=== PATIENT | male | born 1965 | race Caucasian/White ===

== ENCOUNTER 2019-03-22 21:03 | Emergency (ER) | payer OTHER, SELFPAY ==
[2019-03-22 21:18] VITALS: BP 204/104; PULSE 71; RESP 16; TEMP 36.3; O2SAT 98; BMI 26.9
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
[2019-03-22] MEDS: ketorolac 30 mg/mL INJ IVP (22:15)
[2019-03-22] MEDS: diphenhydrAMINE 50 mg/mL SDV 1mL IVP (22:15)
[2019-03-22 23:01] VITALS: BP 164/95; PULSE 66; RESP 18; O2SAT 98
[2019-03-22] MEDS: magnesium sulfate premix 2 GM/50 ML PIGGYBACK IV (23:01)
[2019-03-22] MEDS: dexamethasone 4 mg/mL INJ IVP (23:01)
[2019-03-22] MEDS: valproic acid inj 500 MG in sodium chloride 0.9% 50 ML 55 MG IV (23:17)
[2019-03-23 00:46] VITALS: RESP 16
[2019-03-23] MEDS: fentaNYL 50 mcg/mL INJ 2mL IVP (00:46)
[2019-03-23 00:47] VITALS: BP 161/100; PULSE 73; RESP 16; TEMP 36.6; O2SAT 97
== END 2019-03-23 00:48 | disposition home or self-care (01) ==
PROVIDERS: Emergency Provider Family Medicine; Family Provider Emergency Medicine Emergency Medical Services; PCP Emergency Medicine Emergency Medical Services
DX: G43.019 Migraine without aura, intractable, without status migrainosus (principal); F17.210 Nicotine dependence, cigarettes, uncomplicated
CPT/HCPCS: 36415; 96365; 96368; 96374; 96375; 99283; J1100; J1200; J1885; J3010; J3475

== ENCOUNTER → 2019-07-02 09:41 | Outpatient (BNVA) | payer OTHER, SELFPAY | PROVIDERS: Family Provider Emergency Medicine Emergency Medical Services; PCP Emergency Medicine Emergency Medical Services; Referring Provider Emergency Medicine Emergency Medical Services; Visit Provider Specialist | DX: G43.711 Chronic migraine without aura, intractable, with status migrainosus (principal); F43.10 Post-traumatic stress disorder, unspecified; F17.210 Nicotine dependence, cigarettes, uncomplicated | CPT/HCPCS: 99214 ==

== ENCOUNTER → 2020-03-01 13:47 | Outpatient (BNVA) | payer OTHER, SELFPAY | PROVIDERS: Family Provider Emergency Medicine Emergency Medical Services; PCP Emergency Medicine Emergency Medical Services; Visit Provider Specialist | DX: G40.909 Epilepsy, unspecified, not intractable, without status epilepticus (principal); F17.210 Nicotine dependence, cigarettes, uncomplicated | CPT/HCPCS: 99204 ==

== ENCOUNTER 2020-05-01 04:23 | Emergency (ER) | payer OTHER, SELFPAY ==
[2020-05-01] VITALS (7 sets, daily range): BP systolic 118–144; BP diastolic 67–84; PULSE 64–118; RESP 12–16; TEMP 36.1; O2SAT 93–100; BMI 23.7
--- NOTE | 2020-05-01 05:29 | CTR_ITS ---
PROCEDURE INFORMATION: Exam: CT Head Without Contrast Exam date and time: 05/01/2020 5:32 AM Age: 54 years old Clinical indication: Other: Seizure; Additional info: Sz TECHNIQUE: Imaging protocol: Computed tomography of the head without contrast. Radiation optimization: All CT scans at this facility use at least one of these dose optimization techniques: automated exposure control; mA and/or kV adjustment per patient size (includes targeted exams where dose is matched to clinical indication); or iterative reconstruction. COMPARISON: CT head wo con* [id number] 01/11/2020 11:12 PM RADIATION DOSE METRICS: Total DLP (mGy-cm): 957.77 FINDINGS: Brain: No hemorrhage. Unremarkable white matter. No mass effect. Cerebral ventricles: Still no ventriculomegaly. Bones/joints: Unremarkable. No acute fracture. Paranasal sinuses: Continued minimal mucosal thickening in a few paranasal sinuses. Still no air-fluid levels. Mastoid air cells: Visualized mastoids still unremarkable. Soft tissues: Unremarkable. CT/CT head wo con* [id number] IMPRESSION: No acute findings. Radiation Dose CTDIVOL = (mGy): DLP = 957.77 (mGy-cm)
--- NOTE | 2020-05-01 05:29 | XRR_ITS ---
PROCEDURE INFORMATION: Exam: XR Chest Exam date and time: 05/01/2020 5:32 AM Age: 54 years old Clinical indication: Other: Seizure; Additional info: Karine TECHNIQUE: Imaging protocol: XR of the chest Views: 1 view. COMPARISON: DX Chest 1 view [id number] 01/11/2020 11:25 PM FINDINGS: Lungs: Continued slight atelectasis in the lung bases. Interval slight increase in the lung volumes. Still no consolidation. Pleural spaces: Still no pneumothorax or apparent pleural fluid. Heart/Mediastinum: Borderline cardiomegaly still likely. Bones/joints: Still no apparent acute bony disease. XR/XR chest 1V portable [id number] IMPRESSION: Continued slight atelectasis in the lung bases. Borderline cardiomegaly still likely. No interval acute findings.
--- NOTE | 2020-05-01 05:30 | ECG_ITS ---
Test Date: 2020-05-01 Pat Name: Hair Jonh Department: Room: Gender: Male Etcher Hand: : 1965 Requested By: Erwin Solitario Order Number: [id number] Mendoza MD: Cuauhtemoc Garcia M.D. Measurements Intervals [place] Rate: 101 P: 64 MS: 160 QRS: 16 QRSD: 118 T: 52 QT: 343 QTc: 446 Interpretive Statements SINUS TACHYCARDIA INCOMPLETE RIGHT BUNDLE BRANCH BLOCK [90+ ms QRS DURATION, TERMINAL R IN V1/V2, 40+ ms S IN I/aVL/V4/V5/V6] POSSIBLE LATERAL MYOCARDIAL INFARCTION , OF INDETERMINATE AGE [30 ms Q WAVE IN I/aVL/V5/V6] No previous ECG available for comparison Electronically Signed On 05-01-2020 22:40:00 CDT by Cuauhtemoc Garcia M.D. [id number]
--- NOTE | 2020-05-01 05:45 | ED_ITS ---
HPI - Seizure General: Chief Complaint: Seizure Stated Complaint: SEIZURE Time Seen by Provider: 05/01/20 05:36 Source: patient and EMS Mode of arrival: EMS Limitations: no limitations History of Present Illness: HPI Narrative: 54-year-old male with a history of seizures states he had a seizure overnight lasted roughly 10 minutes. Patient had another seizure in route here by EMS and was given Valium. He feels much improved has had no more seizures since the Valium. He denies hitting his head denies any headache. He takes Keppra at home states he has been taking it. He denies any worsening improving factors. Denies any recent illness. MD complaint: seizure Associated symptoms: Deny chest pain, chills or fever(s) Review of Systems Const: Denies: fever(s), chills, body aches or change in appetite Eyes: Denies: blurry vision or eye discomfort ENMT: Denies: throat pain or dental pain Card: Denies: chest pain Resp: Denies: dyspnea GI: Denies: abdominal pain, nausea, vomiting or diarrhea : Denies: dysuria Musc: Denies: neck pain or back pain Skin/Breast: Denies: rash Neuro: Reports: seizure-like activity Psych: Denies: depression Abdirashid/Lymph: Denies: easy bruising All/Imm: Denies: urticaria PFSH ED PFSH: Family History Father Cancer Diabetes Mother Diabetes Denies family history of Dementia Social History Smoking and tobacco status: current every day smoker Physical Exam Const: COMMON NORMALS: no acute distress, patient oriented x3 and healthy appearing HENMT: COMMON NORMALS: normocephalic and atraumatic HEAD & SCALP: normocephalic and atraumatic Eye: COMMON NORMALS: Equal, round and reactive pupils present and EOMs intact bilaterally PUPIL: Yes Equal, round and reactive pupils present Neck/C-Spine: COMMON NORMALS: full ROM and supple Chest: COMMONS NORMALS: normal inspection of the chest and normal palpation of entire chest wall Resp: COMMON NORMALS: normal respiratory effort, No retractions, No use of accessory muscles and clear to auscultation bilaterally AUSCULTATION: clear to auscultation bilaterally Cardio: COMMON NORMALS: regular rate, regular rhythm and No murmurs present (Cardio) RATE: regular rate RHYTHM: regular rhythm GI: COMMON NORMALS: Normal to inspection, nondistended, normoactive bowel sounds present, Soft to palpation, non-tender and no masses PALPATION: Yes Soft to palpation Extremity: COMMON NORMALS: normal to inspection and full ROM Neuro: COMMON NORMALS: patient oriented x3, moves all extremities and no focal motor deficits Psych: COMMON NORMALS: mental status grossly normal, Normal thought process present and cooperative THOUGHT PROCESS: Normal thought process present Skin: COMMON NORMALS: no rashes or lesions noted and no wounds GENERAL SKIN EXAM: no rashes or lesions noted Course Vital Signs: Vital signs: Vital Signs Temperature 97.0 F L 05/01/20 04:48 Pulse Rate 82 05/01/20 07:25 Respiratory Rate 16 05/01/20 07:25 Blood Pressure 128/84 05/01/20 07:25 Pulse Oximetry 99 05/01/20 07:25 MDM - Seizure MDM Narrative: Medical decision making narrative: Patient presents with a seizure and does have a history of seizures. He is much improved here has not had any seizures [place] here. Blood work and CT head were both normal. He is to continue to keep his Keppra and I did give him a dose of Keppra here. Lab Data: Labs: Lab Results 05/01/20 05/01/20 Range/Units 05:52 05:52 WBC 15.4 H (4.0-10.0) 10^3/ uL RBC 5.17 (4.1-5.3) 10^6/u L Hgb 16.1 (11.7-16.6) g/dL Hct 47.4 (42.0-52.0) % MCV 91.7 (80-94) fL MCH 31.1 (28.0-34.0) pg MCHC 34.0 (30.0-36.0) g/dL RDW 12.6 (12.1-15.1) % Plt Count 271 (130-400) 10^3/c mm MPV 10.3 (7.4-10.4) fL Neut % (Auto) 87.5 % Lymph % (Auto) 6.4 % Mcintosh % (Auto) 4.3 % Eos % (Auto) 0.5 % Baso % (Auto) 0.3 % Neut # (Auto) 13.44 H (1.8-7.7) 10^3/u L Lymph # (Auto) 1.0 (0.8-4.8) 10^3/u L Mcintosh # (Auto) 0.7 (0.2-0.9) 10^3/u L Eos # (Auto) 0.1 (0.0-0.8) 10^3/u L Baso # (Auto) 0.0 (0.0-0.1) 10^3/u L Nucleated RBC % (a uto) 0 % Nucleated RBCs # 0.0 /100WBC Sodium 137 (136-145) mmol/L Potassium 3.7 (3.5-5.1) mmol/L Chloride 102 (98-107) mmol/L Carbon Dioxide 23 (22-29) mmol/L Anion Gap 15.7 (5-19) BUN 8 (6-20) mg/dL Creatinine 1.0 (0.7-1.2) mg/dL GFR Calculation 77.3 L (90-130) mL/min Glucose 126 H (65-115) mg/dL Calculated Osmolal ity 284 L (285-295) mOsm/k g Calcium 9.4 (8.5-10.5) mg/dL Total Bilirubin 0.2 (0.15-1.2) mg/dL AST 22 (0-40) U/L ALT 19 (0-41) U/L Alkaline Phosphata se 77 (40-130) IU/L Total Protein 7.2 (6.6-8.7) g/dL Albumin 4.3 (3.5-5.2) g/dL Globulin 2.9 (1.3-4.6) g/dL Imaging Data^: CT Head: Attestation: I personally reviewed and interpreted this imaging study as follows: Radiologist's impression: [address] [address] [address] Scan Report Signed Patient: Hair John Unit #: [id number] : 1965 Age/Sex: 54 / M ADM Date: 05/01/20 Loc: ER Room/Bed: Attending Dr: Ordering Provider/Ordering MD: Erwin Bustos DO Date of Service: 05/01/20 Procedure(s): CT head wo con* [id number] Accession Number(s): [id number] Report Number: [id number] PROCEDURE INFORMATION: Exam: CT Head Without Contrast Exam date and time: 05/01/2020 5:32 AM Age: 54 years old Clinical indication: Other: Seizure; Additional info: Sz TECHNIQUE: Imaging protocol: Computed tomography of the head without contrast. Radiation optimization: All CT scans at this facility use at least one of these dose optimization techniques: automated exposure control; mA and/or kV adjustment per patient size (includes targeted exams where dose is matched to clinical indication); or iterative reconstruction. COMPARISON: CT head wo con* [id number] 01/11/2020 11:12 PM RADIATION DOSE METRICS: Total DLP (mGy-cm): 957.77 FINDINGS: Brain: No hemorrhage. Unremarkable white matter. No mass effect. Cerebral ventricles: Still no ventriculomegaly. Bones/joints: Unremarkable. No acute fracture. Paranasal sinuses: Continued minimal mucosal thickening in a few paranasal sinuses. Still no air-fluid levels. Mastoid air cells: Visualized mastoids still unremarkable. Soft tissues: Unremarkable. CT/CT head wo con* [id number] IMPRESSION: No acute findings. EKG Data^: EKG 1: Attestation: I personally reviewed and interpreted this EKG as follows: EKG interpretation date: 05/01/20 EKG interpretation time: 05:53 Interpretation: sinus tach hr [address] or t wave abnormalities qrs 118 qtc 401 Discharge Plan Discharge Patient Disposition: Home Clinical Impression: Generalized seizure Condition: Stable Prescriptions: No Action levetiracetam 750 mg tablet extended release 24 hr 1,500 mg PO DAILY Qty: 180 RF: 3 venlafaxine 25 mg tablet 25 mg PO DAILY RF: 0 lisinopril 10 mg tablet 10 mg PO DAILY RF: 0 venlafaxine 150 mg Tablet Extended Release 24hr 150 mg PO DAILY RF: 0 Discharge Orders: Discharge ED (Routine); Ordered 05/01/20 Ordered By: Mackenzie Wilson Referrals: Emeka Evans DO [Primary Care Provider] - Discharge Diet: Advance as tolerated Discharge Activity: Resume usual activity Patient Instructions: Recurrent Seizures Adult (ED) Coding Level of Care Code ED Dairy Laboratory Technician for Chg Fwd Exam Comprehensive
[2020-05-01 06:14] LABS: Basophils % 0.3 %; Eosinophils # 0.1 10^3/uL (0.0-0.8); Eosinophils % 0.5 %; Hematocrit 47.4 % (42.0-52.0); Hemoglobin 16.1 g/dL (11.7-16.6); Lymphocytes % 6.4 %; Mean Corpuscular Hemoglobin 31.1 pg (28.0-34.0); Mean Corpuscular Volume 91.7 fL (80-94); Mean Platelet Volume 10.3 fL (7.4-10.4); Monocytes # 0.7 10^3/uL (0.2-0.9); Monocytes % 4.3 %; Neutrophils # 13.44 10^3/uL (1.8-7.7); Neutrophils % 87.5 %; Nucleated Red Blood Cells % 0 %; Platelet Count 271 10^3/cmm (130-400); Red Blood Count 5.17 10^6/uL (4.1-5.3); Red Cell Distribution Width 12.6 % (12.1-15.1); White Blood Count 15.4 10^3/uL (4.0-10.0)
[2020-05-01 07:04] LABS: Alanine Aminotransferase 19 U/L (0-41); Albumin Level 4.3 g/dL (3.5-5.2); Alkaline Phosphatase 77 IU/L (40-130); Anion Gap 15.7 (5-19); Aspartate Amino Transferase 22 U/L (0-40); Blood Urea Nitrogen 8 mg/dL (6-20); Calcium 9.4 mg/dL (8.5-10.5); Carbon Dioxide 23 mmol/L (22-29); Chloride 102 mmol/L (98-107); Globulin 2.9 g/dL (1.3-4.6); Glomerular Filtration Rate 77.3 mL/min (90-130); Glucose 126 mg/dL (65-115); Osmolality Calculated 284 mOsm/kg (285-295); Potassium 3.7 mmol/L (3.5-5.1); Sodium 137 mmol/L (136-145); Total Bilirubin 0.2 mg/dL (0.15-1.2); Total Protein 7.2 g/dL (6.6-8.7)
== END 2020-05-01 07:30 | disposition home or self-care (01) ==
PROVIDERS: Emergency Medicine; Emergency Provider Emergency Medicine; PCP Emergency Medicine Emergency Medical Services
DX: G40.409 Other generalized epilepsy and epileptic syndromes, not intractable, without status epilepticus (principal); I45.19 Other right bundle-branch block; F17.210 Nicotine dependence, cigarettes, uncomplicated
CPT/HCPCS: 70450; 71045; 80053; 85025; 93005; 96365; 99284; J1953

== ENCOUNTER → 2020-06-09 13:22 | Outpatient (BNVA) | payer OTHER, SELFPAY | PROVIDERS: PCP Emergency Medicine Emergency Medical Services; Visit Provider Specialist | DX: G40.309 Generalized idiopathic epilepsy and epileptic syndromes, not intractable, without status epilepticus (principal); G40.909 Epilepsy, unspecified, not intractable, without status epilepticus; F17.210 Nicotine dependence, cigarettes, uncomplicated | CPT/HCPCS: 99215 ==

== ENCOUNTER → 2020-08-16 09:54 | Outpatient (BNVA) | payer OTHER, SELFPAY | PROVIDERS: PCP Emergency Medicine Emergency Medical Services; Visit Provider Specialist | DX: G40.309 Generalized idiopathic epilepsy and epileptic syndromes, not intractable, without status epilepticus (principal); F17.210 Nicotine dependence, cigarettes, uncomplicated | CPT/HCPCS: 95816 ==

== ENCOUNTER → 2020-09-07 09:54 | Outpatient (BNVA) | payer OTHER, SELFPAY | PROVIDERS: PCP Emergency Medicine Emergency Medical Services; Visit Provider Specialist | DX: G40.309 Generalized idiopathic epilepsy and epileptic syndromes, not intractable, without status epilepticus (principal); F17.200 Nicotine dependence, unspecified, uncomplicated | CPT/HCPCS: 99214 ==

== ENCOUNTER → 2020-12-07 10:03 | Outpatient (BNVA) | payer OTHER, SELFPAY | PROVIDERS: PCP Emergency Medicine Emergency Medical Services; Visit Provider Specialist | DX: G40.309 Generalized idiopathic epilepsy and epileptic syndromes, not intractable, without status epilepticus (principal); F17.210 Nicotine dependence, cigarettes, uncomplicated | CPT/HCPCS: 99214 ==

== ENCOUNTER 2021-01-20 08:58 | Emergency (ER) | payer OTHER, SELFPAY ==
[2021-01-20 09:30] VITALS: BP 127/83; PULSE 95; RESP 16; TEMP 36.6; O2SAT 96
--- NOTE | 2021-01-20 09:36 | W.ED.GENADLT ---
Documented by User: Patria Ortega PA-C 01/20/21 14:31 HPI - General Adult General: Chief complaint: General Medical Stated complaint: RLE SWELLING: [facility] Time Seen by Provider: 01/20/21 08:59 Source: patient Mode of arrival: ambulatory Limitations: no limitations History of Present Illness: HPI narrative: 55-year-old male presents to the ER today for right lower extremity swelling and tenderness. Patient reports this began suddenly 3 days ago. He denies any known injury. He reports tenderness in the right calf with swelling to the ankle and foot. He denies any history of blood clots or clotting disorders. Patient reports he did travel recently for [place], riding approximately 4 hours in the car. He denies any major medical problems at this time other than recent onset seizure disorder. Patient denies any chest pain or shortness of breath. Denies any headache or fevers. Onset (ago): day(s) Location: lower extremity Severity: mild Severity scale (1-10): 4 Quality: aching Pain Consistency: intermittent Associated symptoms: Deny chest pain, dyspnea, headache(s), nausea, rash, palpitations or vomiting Review of Systems General: Reports: 10 or more systems reviewed and unremarkable except in HPI and below Const: Denies: fever(s), chills or body aches Eyes: Denies: change in vision or blurry vision ENMT: Denies: throat pain, nasal discharge or nasal congestion Card: Reports: edema and swelling of feet/ankles (RLE); Denies: chest pain, palpitations or orthopnea Resp: Denies: dyspnea, productive cough or wheezing GI: Denies: abdominal pain, nausea, vomiting, diarrhea or constipation Musc: Reports: extremity pain and extremity swelling; Denies: neck pain or back pain Skin/Breast: Denies: rash or pruritus Neuro: Denies: headache(s) PFSH ED PFSH: Family History Father Cancer Diabetes Mother Diabetes Denies family history of Dementia Social History Smoking and tobacco status: current every day smoker cigarettes Alcohol intake: current Alcohol intake frequency: holidays/special occasions only Physical Exam Const: COMMON NORMALS: no acute distress, average body habitus and patient oriented x3 GENERAL APPEARANCE: cooperative and comfortable HENMT: COMMON NORMALS: normocephalic, external ears normal and Normal external nose present HEAD & SCALP: normocephalic NOSE: Normal external nose present EXTERNAL EAR: Yes external ears normal Eye: COMMON NORMALS: conjunctivae normal CONJUNCTIVA: Yes conjunctivae normal Neck/C-Spine: COMMON NORMALS: no lymphadenopathy Resp: COMMON NORMALS: normal respiratory effort, No retractions and clear to auscultation bilaterally AUSCULTATION: clear to auscultation bilaterally, no rales, no rhonchi and no wheezes Cardio: COMMON NORMALS: regular rate, regular rhythm and No murmurs present (Cardio) RATE: regular rate RHYTHM: regular rhythm PERIPHERAL PULSES: posterior tibial pulses present and dorsalis pedis present GI: COMMON NORMALS: Normal to inspection, nondistended, normoactive bowel sounds present, Soft to palpation and non-tender PALPATION: Yes Soft to palpation Extremity: RIGHT LOWER EXTREMITY: Yes lower leg Right lower leg: Yes inspection (swelling noted, no erythema), Yes palpation (mild tenderness noted to R superior calf, neg Homans sign) and Yes special tests Right lower leg special tests: Gurwinder's sign: Negative (RLE) Neuro: COMMON NORMALS: patient oriented x3, moves all extremities and no sensory deficits noted Psych: COMMON NORMALS: mental status grossly normal, Normal thought process present, cooperative, normal affect and speech normal SPEECH: Yes normal speech THOUGHT PROCESS: Normal thought process present Skin: COMMON NORMALS: no rashes or lesions noted GENERAL SKIN EXAM: no rashes or lesions noted Course ED course: Patient presents to the ER today for right lower extremity swelling x3 days. He has no history of blood clots but we will rule that out at this time with a Doppler venous ultrasound. We will also get labs at this time. Vital Signs: Vital signs: Vital Signs Temperature 96.4 F L 01/20/21 10:12 Pulse Rate 86 01/20/21 10:12 Respiratory Rate 20 H 01/20/21 10:12 Blood Pressure 134/80 01/20/21 10:12 Pulse Oximetry 97 01/20/21 10:12 MDM - General Adult MDM Narrative: Medical decision making narrative: 55-year-old male presents to the ER today for right lower extremity swelling x3 days. Patient has no history of DVTs or clotting disorders. Denies any injury. Ultrasound of the right lower extremity does not reveal a DVT but does note a Ceballos's cyst in the posterior knee. This is a probable cause for the swelling in the extremity. Patient has been sedentary over the last week or so while traveling. Recommended conservative treatment at this time including rest and elevation. Follow-up with PCP in 3 to 5 days. Patient was noted to have elevated liver enzymes but reports he knows about that and that is his baseline. Return to the ER with any new or worsening symptoms. Patient verbalized understanding and was in agreement with this treatment plan. Lab Data: Attestation: I reviewed the patient's lab results. Lab results narrative: Patient has elevated liver enzymes in addition to slightly decreased sodium level and slightly increased potassium level. Labs: Lab Results 01/20/21 01/20/21 01/20/21 10:00 10:00 11:22 WBC Cancelled 9.8 10^3/uL 10^3/ uL (4.0-10.0) Corrected WBC Cancelled RBC Cancelled 4.74 10^6/uL 10^6 /uL (4.1-5.3) Hgb Cancelled 15.2 g/dL g/dL (11.7-16.6) Hct Cancelled 46.1 % % (42.0-52.0) MCV Cancelled 97.3 fl H fl (80-94) MCH Cancelled 32.1 pg pg (28.0-34.0) MCHC Cancelled 33.0 g/dL g/dL (30.0-36.0) RDW Cancelled 14.1 % % (12.1-15.1) Plt Count Cancelled 294 10^3/cmm 10^3 /cmm (130-400) MPV Cancelled 9.8 fL fL (7.4-10.4) Gran % Cancelled Neut % (Auto) Cancelled 55.6 % % Lymph % (Auto) Cancelled 29.6 % % Preble % (Auto) Cancelled 10.4 % % Eos % (Auto) Cancelled 2.6 % % Baso % (Auto) Cancelled 1.0 % % Neut # (Auto) Cancelled 5.43 10^3/uL 10^3 /uL (1.8-7.7) Lymph # (Auto) Cancelled 2.9 10^3/uL 10^3/ uL (0.8-4.8) Preble # (Auto) Cancelled 1.0 10^3/uL H 10^ 3/uL (0.2-0.9) Eos # (Auto) Cancelled 0.3 10^3/uL 10^3/ uL (0.0-0.8) Baso # (Auto) Cancelled 0.1 10^3/uL 10^3/ uL (0.0-0.1) Absolute Gran (aut o) Cancelled Nucleated RBC % (a uto) Cancelled 0 % % Nucleated RBCs # Cancelled 0.0 /100WBC /100W BC Sodium 133 mmol/L L mmol /L (136-145) Potassium 5.2 mmol/L H mmol /L (3.5-5.1) Chloride 97 mmol/L L mmol/ L (98-107) Carbon Dioxide 22 mmol/L mmol/L (22-29) Anion Gap 19.2 H (5-19) BUN 9 mg/dL mg/dL (6-20) Creatinine 1.0 mg/dL mg/dL (0.7-1.2) GFR Calculation 77.0 mL/min L mL/ min (90-130) Glucose 71 mg/dL mg/dL (65-115) Calculated Osmolal ity 273 mOsm/kg L mOs m/kg (285-295) Calcium 8.7 mg/dL mg/dL (8.5-10.5) Total Bilirubin 0.2 mg/dL mg/dL (0.15-1.2) AST 91 U/L H U/L (0-40) ALT 137 U/L H U/L (0-41) Alkaline Phosphata se 75 IU/L IU/L (40-130) Total Protein 6.9 g/dL g/dL (6.6-8.7) Albumin 4.4 g/dL g/dL (3.5-5.2) Globulin 2.5 g/dL g/dL (1.3-4.6) Imaging Data^: US Vascular: Radiologist's impression: Negative for DVT Critical Care Time Critical Care Time: Critical Care Time: No Discharge Plan Discharge Patient Disposition: Home Clinical Impression: Swelling of right lower extremity Ceballos's cyst of knee Qualifiers: Laterality: right Qualified Code(s): M71.21 - Synovial cyst of popliteal space [Ceballos], right knee Condition: Stable Prescriptions: No Action amitriptyline 25 mg tablet 25 mg PO ONCE PRNRF: 0 lisinopril 10 mg tablet 10 mg PO DAILY RF: 0 Nayzilam 5 mg/spray (0.1 mL) spray,non-aerosol 1 spray intranasal ONCE PRN (Reason: seizures) Qty: 1 RF: 5 fluoxetine [Prozac] 40 mg capsule 40 mg PO DAILY RF: 0 naproxen 500 mg tablet 500 mg PO DAILY RF: 0 levetiracetam 750 mg tablet extended release 24 hr 1,500 mg PO DAILY 30 Days Qty: 60 RF: 0 divalproex [Depakote ER] 500 mg tablet extended release 24 hr 1,500 mg PO DAILY Qty: 90 RF: 3 pantoprazole 40 mg tablet,delayed release (DR/EC) 40 mg PO DAILY RF: 0 Discharge Orders: Discharge ED (Routine); Ordered 01/20/21 Ordered By: Patria Ortega Referrals: Emeka Evans DO [Primary Care Provider] - Discharge Diet: Usual diet Discharge Activity: Resume usual activity Patient Instructions: Opioid Safety Activity Restrictions/Additional Instructions: Continue home medications as previously prescribed. Rest and elevation recommended to reduce swelling. Follow-up with PCP in 3 to 5 days. Return to the ER with any new or worsening symptoms. Coding Level of Care Code ED International Coordinator for Chg Fwd Exam Comprehensive Documented by User: Go Nunes MD 01/24/21 00:34 HPI - General Adult General: Chief complaint: General Medical Stated complaint: RLE SWELLING: [facility]OD [facility]OT Time Seen by Provider: 01/20/21 08:59 PFSH ED PFSH: Family History Father Cancer Diabetes Mother Diabetes Denies family history of Dementia Social History Smoking and tobacco status: current every day smoker cigarettes Alcohol intake: current Alcohol intake frequency: holidays/special occasions only Course Vital Signs: Vital signs: Vital Signs Temperature 96.4 F L 01/20/21 10:12 Pulse Rate 86 01/20/21 10:12 Respiratory Rate 20 H 01/20/21 10:12 Blood Pressure 134/80 01/20/21 10:12 Pulse Oximetry 97 01/20/21 10:12 MDM - General Adult MDM Narrative: Medical decision making narrative: I discussed this case with BALWINDER Amado. I have reviewed documentation. Go Nunes MD Emergency Medicine Lab Data: Labs: Lab Results 01/20/21 01/20/21 01/20/21 10:00 10:00 11:22 WBC Cancelled 9.8 10^3/uL 10^3/ uL (4.0-10.0) Corrected WBC Cancelled RBC Cancelled 4.74 10^6/uL 10^6 /uL (4.1-5.3) Hgb Cancelled 15.2 g/dL g/dL (11.7-16.6) Hct Cancelled 46.1 % % (42.0-52.0) MCV Cancelled 97.3 fl H fl (80-94) MCH Cancelled 32.1 pg pg (28.0-34.0) MCHC Cancelled 33.0 g/dL g/dL (30.0-36.0) RDW Cancelled 14.1 % % (12.1-15.1) Plt Count Cancelled 294 10^3/cmm 10^3 /cmm (130-400) MPV Cancelled 9.8 fL fL (7.4-10.4) Gran % Cancelled Neut % (Auto) Cancelled 55.6 % % Lymph % (Auto) Cancelled 29.6 % % Preble % (Auto) Cancelled 10.4 % % Eos % (Auto) Cancelled 2.6 % % Baso % (Auto) Cancelled 1.0 % % Neut # (Auto) Cancelled 5.43 10^3/uL 10^3 /uL (1.8-7.7) Lymph # (Auto) Cancelled 2.9 10^3/uL 10^3/ uL (0.8-4.8) Preble # (Auto) Cancelled 1.0 10^3/uL H 10^ 3/uL (0.2-0.9) Eos # (Auto) Cancelled 0.3 10^3/uL 10^3/ uL (0.0-0.8) Baso # (Auto) Cancelled 0.1 10^3/uL 10^3/ uL (0.0-0.1) Absolute Gran (aut o) Cancelled Nucleated RBC % (a uto) Cancelled 0 % % Nucleated RBCs # Cancelled 0.0 /100WBC /100W BC Sodium 133 mmol/L L mmol /L (136-145) Potassium 5.2 mmol/L H mmol /L (3.5-5.1) Chloride 97 mmol/L L mmol/ L (98-107) Carbon Dioxide 22 mmol/L mmol/L (22-29) Anion Gap 19.2 H (5-19) BUN 9 mg/dL mg/dL (6-20) Creatinine 1.0 mg/dL mg/dL (0.7-1.2) GFR Calculation 77.0 mL/min L mL/ min (90-130) Glucose 71 mg/dL mg/dL (65-115) Calculated Osmolal ity 273 mOsm/kg L mOs m/kg (285-295) Calcium 8.7 mg/dL mg/dL (8.5-10.5) Total Bilirubin 0.2 mg/dL mg/dL (0.15-1.2) AST 91 U/L H U/L (0-40) ALT 137 U/L H U/L (0-41) Alkaline Phosphata se 75 IU/L IU/L (40-130) Total Protein 6.9 g/dL g/dL (6.6-8.7) Albumin 4.4 g/dL g/dL (3.5-5.2) Globulin 2.5 g/dL g/dL (1.3-4.6) Discharge Plan Discharge Patient Disposition: Home Clinical Impression: Swelling of right lower extremity Ceballos's cyst of knee Qualifiers: Laterality: right Qualified Code(s): M71.21 - Synovial cyst of popliteal space [Ceballos], right knee Condition: Stable Prescriptions: No Action amitriptyline 25 mg tablet 25 mg PO ONCE PRNRF: 0 lisinopril 10 mg tablet 10 mg PO DAILY RF: 0 Nayzilam 5 mg/spray (0.1 mL) spray,non-aerosol 1 spray intranasal ONCE PRN (Reason: seizures) Qty: 1 RF: 5 fluoxetine [Prozac] 40 mg capsule 40 mg PO DAILY RF: 0 naproxen 500 mg tablet 500 mg PO DAILY RF: 0 levetiracetam 750 mg tablet extended release 24 hr 1,500 mg PO DAILY 30 Days Qty: 60 RF: 0 divalproex [Depakote ER] 500 mg tablet extended release 24 hr 1,500 mg PO DAILY Qty: 90 RF: 3 pantoprazole 40 mg tablet,delayed release (DR/EC) 40 mg PO DAILY RF: 0 Discharge Orders: Discharge ED (Routine); Ordered 01/20/21 Ordered By: Patria Ortega Referrals: Emeka Evans DO [Primary Care Provider] - Discharge Diet: Usual diet Discharge Activity: Resume usual activity Patient Instructions: Opioid Safety Activity Restrictions/Additional Instructions: Continue home medications as previously prescribed. Rest and elevation recommended to reduce swelling. Follow-up with PCP in 3 to 5 days. Return to the ER with any new or worsening symptoms. Coding Level of Care Code ED International Coordinator for Latanya Fwd Exam Comprehensive
--- NOTE | 2021-01-20 09:41 | USCV_ITS ---
Hair John Age: 55 Gender: M : 1965 Exam Date: 01/20/2021 10:38 Ordering Phys: Patria Ortega Technologist: Shasta Khanna [place]am [place] [facility] [place] Indication: RLE PAIN AND SWELLING HISTORY: Lower extremity swelling. Lower extremity pain. PROCEDURES: Venous duplex imaging was performed in only the right lower extremity. The following venous structures were evaluated: common femoral vein, profunda vein, proximal portion of the greater saphenous vein, superficial femoral vein, and the popliteal vein. In addition, the posterior tibial and peroneal trunk were evaluated. Serial compression, augmentation maneuvers, and spectral Doppler flow evaluation were performed. FINDINGS: No evidence of DVT seen in any vessel visualized at this time. Ceballos's cyst seen in right Pop [place]. Edema seen in Lower Leg CONCLUSIONS No evidence of right lower extremity DVT. Popliteal cyst measuring 2.6x1.5x5.0cm John Mejia MD (Electronically Signed) Final Date: 20 January 2021 17:20 S
[2021-01-20 10:12] VITALS: BP 134/80; PULSE 86; RESP 20; TEMP 35.8; O2SAT 97
[2021-01-20 10:40] LABS: Alanine Aminotransferase 137 U/L (0-41); Albumin Level 4.4 g/dL (3.5-5.2); Alkaline Phosphatase 75 IU/L (40-130); Blood Urea Nitrogen 9 mg/dL (6-20); Calcium 8.7 mg/dL (8.5-10.5); Carbon Dioxide 22 mmol/L (22-29); Chloride 97 mmol/L (98-107); Globulin 2.5 g/dL (1.3-4.6); Glucose 71 mg/dL (65-115); Osmolality Calculated 273 mOsm/kg (285-295); Sodium 133 mmol/L (136-145); Total Bilirubin 0.2 mg/dL (0.15-1.2); Total Protein 6.9 g/dL (6.6-8.7)
[2021-01-20 10:50] LABS: Anion Gap 19.2 (5-19); Aspartate Amino Transferase 91 U/L (0-40); Potassium 5.2 mmol/L (3.5-5.1)
[2021-01-20 11:40] LABS: Basophils # 0.1 10^3/uL (0.0-0.1); Eosinophils # 0.3 10^3/uL (0.0-0.8); Eosinophils % 2.6 %; Hematocrit 46.1 % (42.0-52.0); Hemoglobin 15.2 g/dL (11.7-16.6); Lymphocytes # 2.9 10^3/uL (0.8-4.8); Lymphocytes % 29.6 %; Mean Corpuscular Hemoglobin 32.1 pg (28.0-34.0); Mean Corpuscular Volume 97.3 fl (80-94); Mean Platelet Volume 9.8 fL (7.4-10.4); Monocytes % 10.4 %; Neutrophils # 5.43 10^3/uL (1.8-7.7); Neutrophils % 55.6 %; Nucleated Red Blood Cells % 0 %; Platelet Count 294 10^3/cmm (130-400); Red Blood Count 4.74 10^6/uL (4.1-5.3); Red Cell Distribution Width 14.1 % (12.1-15.1); White Blood Count 9.8 10^3/uL (4.0-10.0)
== END 2021-01-20 12:29 | disposition home or self-care (01) ==
PROVIDERS: Emergency Provider Physician Assistant; PCP Emergency Medicine Emergency Medical Services
DX: M71.21 Synovial cyst of popliteal space [Baker], right knee (principal); M79.89 Other specified soft tissue disorders; F17.210 Nicotine dependence, cigarettes, uncomplicated
CPT/HCPCS: 80053; 85025; 93971; 99283; 99291

== ENCOUNTER → 2021-03-07 09:34 | Outpatient (BNVA) | payer OTHER, SELFPAY | PROVIDERS: PCP Emergency Medicine Emergency Medical Services; Visit Provider Specialist | DX: G40.309 Generalized idiopathic epilepsy and epileptic syndromes, not intractable, without status epilepticus (principal); R63.5 Abnormal weight gain; Z68.30 Body mass index [BMI] 30.0-30.9, adult | CPT/HCPCS: 99214 ==

== ENCOUNTER → 2021-12-05 14:56 | Outpatient (BNVA) | payer OTHER, SELFPAY | PROVIDERS: PCP Emergency Medicine Emergency Medical Services; Visit Provider Specialist | DX: G40.409 Other generalized epilepsy and epileptic syndromes, not intractable, without status epilepticus (principal); G43.711 Chronic migraine without aura, intractable, with status migrainosus | CPT/HCPCS: 99213; 99214 ==

== ENCOUNTER 2022-10-04 10:13 | Outpatient (CLI) | payer OTHER, SELFPAY ==
--- NOTE | 2022-10-04 | ECG_ITS ---
[facility] Test Date: 2022-10-04 Pat Name: Hair John Department: Room: Gender: Male Search Analyst: Victoria Beckman : 1965 Requested By: Emeka Almaguer Order Number: [id number] Mendoza MD: Anaid Dickerson M.D. Interpretive Statements NAME OF STUDY: LEXISCAN SESTAMIBI STRESS TEST INDICATION: Shortness of Breath on exertion PROCEDURE: At the baseline, the blood pressure was 131/91 mmHg, oxygen saturation 93% with a heart rate of 75 bpm. The electrocardiogram showed sinus rhythm, normal axis. Right bundle branch block. The Lexiscan was infused over a period of 20 seconds. A total of 0.4 milligrams of Lexiscan was infused. The stress phase was continued for a total of 5 minutes. Heart rate at the end of the stress phase was 78 bpm, oxygen saturation 96% with a blood pressure 132/87 mm Hg. The EKG at the peak infusion revealed significant ST-T wave changes. Sestamibi was injected 20 seconds after the Lexiscan infusion. Blood pressure at the end of the recovery phase was 140/93 mmHg, oxygen saturation 91% with a heart rate of 84 beats per minute. CONCLUSION: 1. No significant EKG changes with the LexiScan infusion. 2. No LexiScan induced chest pain or cardiac arrhythmia. 3. Normal blood pressure and heart rate response. 4. Sestamibi/sestamibi perfusion scan pending; see separate report. Electronically Signed On 10-12-2022 13:28:51 CDT by Anaid Dickerson M.D. [email or web address]
[2022-10-04 12:04] VITALS: BMI 32.0
--- NOTE | 2022-10-04 12:05 | NMCV_ITS ---
NM vega perf SPECT r/s* [id number] Hair John Age: 57 Gender: M : 1965 Exam Date: 10/04/2022 13:15 Ordering Phys: Emeka Evans DO Technologist: JASON Beltrán Exam Location: [facility] Indications: SHORTNESS OF BREATH STRESS TEST Please [facility] IMAGE PROTOCOL Rest/Stress 1 Lexiscan Day Radiopharmaceutical Dose (mCi) Administration Site Administered by Rest: Tc-99m 10.5 IV Law Blancas, HISTOLOGY TECHNICIAN Sestamibi Stress:Tc-99m 32.5 IV Law Blancas, HISTOLOGY TECHNICIAN Sestamibi Rest: 04-Oct-2022 60 Discovery 630 Stress: 04-Oct-2022 30 Discovery 630 0.4mg Lexiscan. Images obtained in supine and prone position. SPECT RESULTS Technical Quality: Excellent Raw Data Analysis: Normal Image Corrections: No attenuation or motion correction applied Summed Stress Score: 0 Summed Rest Score: 0 Summed Difference Score: 0 PERFUSION FINDINGS SPECT images demonstrate homogeneous tracer distribution throughout the myocardium. FUNCTIONAL RESULTS (calculated via Gated SPECT) Stress Image LV EF (%): 65 Stress EDV (mL):83 TID: 1.12 Stress ESV (mL):29 FUNCTIONAL FINDINGS: The left ventricle is normal in size. Transient Ischemia Dilatation of 1.1. The left ventricular ejection fraction is normal with a value of 65%. There is normal left ventricular wall thickening. Normal end diastolic and end systolic volumes. IMPRESSIONS 1. Myocardial perfusion imaging is normal. 2. Overall left ventricular systolic function is normal without regional wall motion abnormalities, LVEF=65%. 3. EKG portion of the study will be reported separately. 4. Scan indicates low risk for cardiac events. Anaid Dickerson MD (Electronically Signed) Final Date: 06 October 2022 16:44 S
[2022-10-04] MEDS: regadenoson 0.4 Mg/5 ml Syringe IVP (12:47)
[2022-10-04 13:25] VITALS: BP 140/93; PULSE 85
== END 2022-10-04 10:14 | disposition home or self-care (01) ==
LOC: CDL 10:14
PROVIDERS: PCP Emergency Medicine Emergency Medical Services; Visit Provider Emergency Medicine Emergency Medical Services
DX: R06.02 Shortness of breath (principal)
CPT/HCPCS: 36415; 78452; 93017; 96375; A9500; J2785

== ENCOUNTER → 2022-12-05 14:45 | Outpatient (BNVA) | payer OTHER, SELFPAY | PROVIDERS: PCP Emergency Medicine Emergency Medical Services; Visit Provider Specialist | DX: G40.309 Generalized idiopathic epilepsy and epileptic syndromes, not intractable, without status epilepticus (principal); G43.711 Chronic migraine without aura, intractable, with status migrainosus | CPT/HCPCS: 99215 ==

== ENCOUNTER 2023-01-30 06:00 | Outpatient (CLI) | payer OTHER, SELFPAY | END 2023-01-30 23:59 | disposition home or self-care (01) | LOC: SOT 02-05 07:29 | PROVIDERS: PCP Emergency Medicine Emergency Medical Services; Visit Provider Specialist | DX: Z46.89 Encounter for fitting and adjustment of other specified devices (principal); S62.306D Unspecified fracture of fifth metacarpal bone, right hand, subsequent encounter for fracture with routine healing; X58.XXXD Exposure to other specified factors, subsequent encounter | CPT/HCPCS: 26600; 97760; 99203; L3919 ==

== ENCOUNTER → 2023-01-30 15:26 | Outpatient (BNVA) | payer OTHER, SELFPAY | PROVIDERS: PCP Emergency Medicine Emergency Medical Services; Referring Provider Emergency Medicine Emergency Medical Services; Visit Provider Specialist | DX: S62.336A Displaced fracture of neck of fifth metacarpal bone, right hand, initial encounter for closed fracture; W11.XXXA Fall on and from ladder, initial encounter | CPT/HCPCS: 73130 ==

== ENCOUNTER → 2023-02-20 14:15 | Outpatient (BNVA) | payer OTHER, SELFPAY | PROVIDERS: PCP Emergency Medicine Emergency Medical Services; Visit Provider Nurse Practitioner | DX: S62.336A Displaced fracture of neck of fifth metacarpal bone, right hand, initial encounter for closed fracture; W19.XXXA Unspecified fall, initial encounter | CPT/HCPCS: 73130; 99024 ==

== ENCOUNTER → 2023-03-13 09:16 | Outpatient (BNVA) | payer OTHER, SELFPAY | PROVIDERS: PCP Emergency Medicine Emergency Medical Services; Visit Provider Specialist | DX: S62.336D Displaced fracture of neck of fifth metacarpal bone, right hand, subsequent encounter for fracture with routine healing; X58.XXXD Exposure to other specified factors, subsequent encounter | CPT/HCPCS: 73130; 99024 ==

== ENCOUNTER → 2023-03-27 11:14 | Outpatient (BNVA) | payer OTHER, SELFPAY | PROVIDERS: PCP Emergency Medicine Emergency Medical Services; Visit Provider Specialist | DX: G40.309 Generalized idiopathic epilepsy and epileptic syndromes, not intractable, without status epilepticus (principal); G43.711 Chronic migraine without aura, intractable, with status migrainosus; M62.81 Muscle weakness (generalized); R26.9 Unspecified abnormalities of gait and mobility; G62.9 Polyneuropathy, unspecified | CPT/HCPCS: 99215 ==

== ENCOUNTER → 2023-05-08 15:10 | Outpatient (BNVA) | payer OTHER, SELFPAY | PROVIDERS: PCP Emergency Medicine Emergency Medical Services; Visit Provider Specialist | DX: M25.561 Pain in right knee (principal); G89.29 Other chronic pain; M71.21 Synovial cyst of popliteal space [Baker], right knee | CPT/HCPCS: 73560; 73565; 99214 ==

== ENCOUNTER 2023-06-03 09:51 | Outpatient (CLI) | payer OTHER, SELFPAY ==
--- NOTE | 2023-06-03 10:15 | MR_ITS ---
WS: [id number] MRI RIGHT KNEE HISTORY: knee pain COMPARISON: Radiograph 05/08/2023 Anterior cruciate ligament: Intact. Posterior cruciate ligament: Intact. Medial collateral ligament: Intact. Posterior lateral corner structures: Intact. Medial menisci: Mild fraying of the posterior horn. Mild intrasubstance degeneration of the posterior horn but no tear. Lateral meniscus: Intact. Normal signal, size and shape. Extensor mechanism: Distal quadriceps tendon and patellar tendons are intact. Fluid and soft tissue: No joint effusion. No Ceballos's cyst. Osseous and articular structures: Patellofemoral compartment: Normal. Medial compartment: Mild narrowing of the medial compartment. Thinning and fissuring of the cartilage . No fractures or marrow edema. Lateral compartment: Very mild narrowing of the lateral compartment with thinning and fissuring of th e cartilage. No full-thickness cartilage defect. There is a small amount of marrow edema at the base of the tibial spine. IMPRESSION: 1. Mild medial and lateral compartment narrowing with fissuring and thinning of the cartilage. No ma rrow edema. 2. No meniscal tear. 3. No joint effusion.
== END 2023-06-03 09:52 | disposition home or self-care (01) ==
LOC: RAD 09:52
PROVIDERS: PCP Emergency Medicine Emergency Medical Services; Visit Provider Specialist
DX: M25.561 Pain in right knee (principal)
CPT/HCPCS: 73721

== ENCOUNTER → 2023-08-12 15:08 | Outpatient (BNVA) | payer OTHER, SELFPAY | PROVIDERS: PCP Emergency Medicine Emergency Medical Services; Visit Provider Specialist | DX: M25.561 Pain in right knee | CPT/HCPCS: 99214 ==

== ENCOUNTER → 2023-09-10 14:47 | Outpatient (BNVA) | payer OTHER, SELFPAY | PROVIDERS: PCP Emergency Medicine Emergency Medical Services; Visit Provider Podiatrist Foot & Ankle Surgery | DX: M79.671 Pain in right foot (principal); M79.672 Pain in left foot; G62.9 Polyneuropathy, unspecified; Q66.71 Congenital pes cavus, right foot; Q66.72 Congenital pes cavus, left foot; M25.471 Effusion, right ankle; M25.472 Effusion, left ankle; M25.474 Effusion, right foot; M25.475 Effusion, left foot; G57.63 Lesion of plantar nerve, bilateral lower limbs | CPT/HCPCS: 73630; 99203 ==

== ENCOUNTER → 2023-09-18 14:45 | Outpatient (BNVA) | payer OTHER, SELFPAY | PROVIDERS: PCP Emergency Medicine Emergency Medical Services; Visit Provider Specialist | DX: G40.309 Generalized idiopathic epilepsy and epileptic syndromes, not intractable, without status epilepticus (principal); G43.711 Chronic migraine without aura, intractable, with status migrainosus; R26.9 Unspecified abnormalities of gait and mobility; G62.9 Polyneuropathy, unspecified; R03.0 Elevated blood-pressure reading, without diagnosis of hypertension; F17.200 Nicotine dependence, unspecified, uncomplicated; F43.10 Post-traumatic stress disorder, unspecified; R41.82 Altered mental status, unspecified; F17.210 Nicotine dependence, cigarettes, uncomplicated; Z71.6 Tobacco abuse counseling | CPT/HCPCS: 99214; 99215 ==

== ENCOUNTER 2023-09-30 16:21 | Outpatient (CLI) | payer OTHER, SELFPAY ==
--- NOTE | 2023-09-30 16:45 | MR_ITS ---
WS: [id number] MRI BRAIN WITHOUT CONTRAST HISTORY: G43.711 - Chronic migraine without aura, intractable, wit... COMPARISON: MRI head 01/12/2020 TECHNIQUE: Diffusion imaging, multiplanar T1, T2 and FLAIR imaging obtained. No evidence for acute infarct or hemorrhage. Aparicio-white matter differentiation is normal. No acute infarct or significant atrophy. There are a few T2 and FLAIR signal hyperintensities scatter ed throughout the subcortical white matter. These are predominantly within the supraventricular locat ion in the frontal lobes. Mild atrophy of the hippocampal formations. Slightly greater volume loss on the RIGHT. Ventricles and extra-axial spaces are normal. No inferior displacement of cerebellar tonsils. The sella turcica and pituitary gland are unremarkabl e. Dural venous sinuses and [place] demonstrate no abnormality on this unenhanced studies. Paranasal sinuses: Clear. Mastoid air cells: Normal. Calvarium and scalp: Intact. MR/MR head wo con* [id number] IMPRESSION: 1. Normal diffusion. No hemorrhage. 2. Very minimal scattered T2 and FLAIR signal hyperintensities in the frontal lobes. Similar to the prior study. 3. Very mild hippocampal atrophy, RIGHT greater than LEFT. 4. No prior infarct.
== END 2023-09-30 16:22 | disposition home or self-care (01) ==
PROVIDERS: PCP Emergency Medicine Emergency Medical Services; Visit Provider Specialist
DX: G43.711 Chronic migraine without aura, intractable, with status migrainosus (principal); R41.82 Altered mental status, unspecified; G40.309 Generalized idiopathic epilepsy and epileptic syndromes, not intractable, without status epilepticus; G31.89 Other specified degenerative diseases of nervous system; R90.89 Other abnormal findings on diagnostic imaging of central nervous system
CPT/HCPCS: 70551

== ENCOUNTER 2023-10-18 11:17 | Emergency (ER) | payer OTHER, SELFPAY ==
[2023-10-18 11:23] VITALS: BP 147/84; PULSE 70; RESP 22; TEMP 36.8; O2SAT 98; BMI 33.7
--- NOTE | 2023-10-18 12:41 | USCV_ITS ---
Hair John Age: 58 Gender: M : 1965 Exam Date: 10/18/2023 12:56 Ordering Phys: Mackenzie Wilson MD Technologist: USR [place]am [place] [facility] [place] Indication: Edema HISTORY: Lower extremity edema. PROCEDURES: Venous duplex imaging was performed in only the left lower extremity. The following venous structures were evaluated: common femoral vein, profunda vein, proximal portion of the greater saphenous vein, superficial femoral vein, and the popliteal vein. In addition, the posterior tibial and peroneal trunk were evaluated. Serial compression, augmentation maneuvers, and spectral Doppler flow evaluation were performed. FINDINGS: No evidence of DVT seen in any vessel visualized at this time. CONCLUSIONS No evidence of left lower extremity DVT. John Mejia MD (Electronically Signed) Final Date: 18 October 2023 13:53 S
--- NOTE | 2023-10-18 12:41 | XR_ITS ---
WS: [id number] Exam: XR chest 1V portable [id number] Date/Time of Exam: 10/18/2023 12:47 PM Reason For Exam: weakness Comparison 05/01/2020. Lungs are clear. Plaque atelectasis in the LEFT base. No pleural effusions or pneumothorax. Cardiomed iastinal silhouette is unremarkable for technique. Unremarkable bony structures. XR/XR chest 1V portable [id number] IMPRESSION: 1. LEFT basal plaque atelectasis. No acute cardiopulmonary finding.
--- NOTE | 2023-10-18 12:41 | CT_ITS ---
WS: [id number] CT HEAD TECHNIQUE: Noncontrast CT of the head obtained from the skullbase to the vertex. CLINICAL INFORMATION: weakness COMPARISON: MRI 09/30/2023 DLP: 1168.[address] scans at [facility] use at least one of these dose optimization techniques: automated e xposure control; mA and/or kV adjustment per patient size (includes targeted exams where dose is matc hed to clinical indication); or iterative reconstruction. FINDINGS: No evidence of intracranial hemorrhage or mass effect. Ventricular system and basal cisterns are dolan nt. Mild small vessel changes with mild parenchymal volume loss. No extra-axial fluid collections. No evidence of mass or mass effect. Normal russell-white differentiation. Paranasal sinuses and mastoid air cells are well aerated. .Normal visualized soft tissues. CT/CT head wo con* [id number] IMPRESSION: 1. No evidence of intracranial hemorrhage or mass effect. 2. Mild small vessel changes with mild parenchymal volume loss. 3. No acute intracranial findings.
--- NOTE | 2023-10-18 12:55 | ED_ITS ---
HPI - Extremity Problem 2 General: Chief complaint: Extremity Problem,Nontraumatic Stated complaint: swollen leg, slurred speech, off balance Time Seen by Provider: 10/18/23 12:13 Source: patient Mode of arrival: ambulatory Limitations: no limitations History of Present Illness: 58-year-old male states he has had some chronic swelling to his legs was diagnosed with edema is been wearing compression stockings he states that his left leg has been more swollen than his right but he states over the last week he has had a harder time walking states he feels like he leans to the left 20 walks and has had falls. He does use a cane currently his states that he had some jumbled speech as well which I do not notice any slurred speech or aphasia here. He denies any one-sided weakness denies any headache or chest pain Associated symptoms: Deny chest pain, fever(s) or rash Related Data Home Medications Medication Instructions Recorded Confirmed pantoprazole 40 mg tablet,delayed 40 mg PO QAM 01/05/21 10/18/23 release amitriptyline 50 mg tablet 50 mg PO BEDTIME 10/18/23 10/18/23 erenumab-aooe 140 mg/mL 140 mg SUBCUT .Q28D 10/18/23 10/18/23 subcutaneous auto-injector (Aimovig Autoinjector) propranolol 20 mg tablet 20 mg PO BID heart 10/18/23 10/18/23 varenicline 1 mg tablet (Chantix See Rx Instructions .Route .COMPLEX 10/18/23 10/18/23 Continuing Month Box) Previous Rx's Medication Instructions Recorded divalproex 500 mg tablet,extended 1,500 mg (3 x 500 mg) PO DAILY 01/14/23 release 24 hr (Depakote ER) #270 tabs Custom insoles #1 ea 09/10/23 Orthopedic Shoes #1 ea 09/10/23 compression stockings #1 ea 09/10/23 Allergies Allergy/AdvReac Type Severity Reaction Status Date / Time No Known Allergies Allergy Verified 10/18/23 11:33 Review of Systems 2 Const: Denies: fever(s), chills, body aches or change in appetite Eyes: Denies: blurry vision or eye discomfort ENMT: Denies: throat pain or dental pain Card: Denies: chest pain Resp: Denies: dyspnea GI: Denies: abdominal pain, nausea, vomiting or diarrhea Musc: Reports: extremity swelling; Denies: neck pain or back pain Skin/Breast: Denies: rash Neuro: Reports: difficulty walking and frequent falls; Denies: headache(s) Psych: Denies: depression PFSH ED 2 PFSH: Family History Father Cancer Diabetes Mother Diabetes Denies family history of Dementia Social History Smoking and tobacco/nicotine status: current every day tobacco/nicotine user (smokes 1 pack daily) cigarettes Alcohol intake: current Alcohol intake frequency: holidays/special occasions only Substance/Drug Use: never Physical Exam 2 Const: COMMON NORMALS: patient oriented x3 HENMT: COMMON NORMALS: normocephalic and atraumatic HEAD & SCALP: n ormocephalic and atraumatic Eye: COMMON NORMALS: Equal, round and reactive pupils present and EOMs intact bilaterally PUPIL: Yes Equal, round and reactive pupils present Neck/C-Spine: COMMON NORMALS: full ROM and supple Chest: COMMONS NORMALS: normal inspection of the chest and normal palpation of entire chest wall Resp: COMMON NORMALS: normal respiratory effort, No retractions, No use of accessory muscles and clear to auscultation bilaterally AUSCULTATION: clear to auscultation bilaterally Cardio: COMMON NORMALS: regular rate, regular rhythm and No murmurs present (Cardio) RATE: regular rate RHYTHM: regular rhythm GI: COMMON NORMALS: Normal to inspection, nondistended, normoactive bowel sounds present, Soft to palpation, non-tender and no masses PALPATION: Yes Soft to palpation Extremity: COMMON NORMALS: full ROM NARRATIVE EXTREMITY EXAM: Swelling to bilateral extremities left greater than right distal pulses sensation intact Neuro: COMMON NORMALS: patient oriented x3, moves all extremities and no focal motor deficits CRANIAL NERVES: Yes CN normal except as noted SPEECH: s peech normal Psych: COMMON NORMALS: mental status grossly normal, Normal thought process present and cooperative THOUGHT PROCESS: Normal thought process present Skin: COMMON NORMALS: no rashes or lesions noted and no wounds GENERAL SKIN EXAM: no rashes or lesions noted Course 2 Vital Signs: Vital signs: Vital Signs Temperature 98.2 F 10/18/23 11:23 Pulse Rate 70 10/18/23 11:23 Respiratory Rate 22 H 10/18/23 11:23 Blood Pressure 140/77 10/18/23 13:00 Pulse Oximetry 95 10/18/23 13:35 Oxygen Delivery Me thod Room Air 10/18/23 11:23 MDM - Extremity (Nontraumatic) Medical Decision Making Patient presents here with bilateral lower extremity edema likely having some difficulty walking due to the edema he has no focal deficits here has had no slurred speech head CT is normal he has no signs of a stroke he has a follow-up with PCP stable for discharge return if worsening he understands agrees to plan Medical Records I reviewed the patient's medical records. Lab Data I reviewed the patient's lab results. 10/18/23 12:50 10/18/23 12:50 Radiology Impressions Chest X-Ray 10/18/23 12:41 IMPRESSION: 1. LEFT basal plaque atelectasis. No acute cardiopulmonary finding. Head CT 10/18/23 12:41 IMPRESSION: 1. No evidence of intracranial hemorrhage or mass effect. 2. Mild small vessel changes with mild parenchymal volume loss. 3. No acute intracranial findings. Laboratory Results WBC 8.05 10^3/uL (3.29-11.43) 10/18/23 12:50 RBC 4.59 10^6/uL (3.85-5.65) 10/18/23 12:50 Hgb 14.80 g/dL (11.27-16.99) 10/18/23 12:50 Hct 45.1 % (37-53) 10/18/23 12:50 MCV 98.3 fl (82-101) 10/18/23 12:50 MCH 32.2 pg (27-33) 10/18/23 12:50 MCHC 32.8 g/dL (30-55) 10/18/23 12:50 RDW 14.1 % (12.1-15.1) 10/18/23 12:50 Plt Count 220 10^3/cmm (157-399) 10/18/23 12:50 MPV 10.2 fL (7.4-10.4) 10/18/23 12:50 Neut % (Auto) 47.9 % 10/18/23 12:50 Lymph % (Auto) 37.6 % 10/18/23 12:50 Bowie % (Auto) 10.7 % 10/18/23 12:50 Eos % (Auto) 2.5 % 10/18/23 12:50 Baso % (Auto) 0.7 % 10/18/23 12:50 Neut # (Auto) 3.85 10^3/uL (1.8-7.7) 10/18/23 12:50 Lymph # (Auto) 3.0 10^3/uL (0.8-4.8) 10/18/23 12:50 Bowie # (Auto) 0.9 10^3/uL (0.2-0.9) 10/18/23 12:50 Eos # (Auto) 0.2 10^3/uL (0.0-0.8) 10/18/23 12:50 Baso # (Auto) 0.1 10^3/uL (0.0-0.1) 10/18/23 12:50 Nucleated RBC % (auto) 0 % 10/18/23 12:50 Nucleated RBCs # 0.0 /100WBC 10/18/23 12:50 Sodium 133 mmol/L (136-145) L 10/18/23 12:50 Potassium 4.9 mmol/L (3.5-5.1) 10/18/23 12:50 Chloride 98 mmol/L (98-107) 10/18/23 12:50 Carbon Dioxide 24 mmol/L (22-29) 10/18/23 12:50 Anion Gap 15.9 (5-19) 10/18/23 12:50 BUN 15 mg/dL (8-23) 10/18/23 12:50 Creatinine 0.9 mg/dL (0.7-1.2) 10/18/23 12:50 GFR Calculation 86.1 mL/min (90-130) L 10/18/23 12:50 Glucose 76 mg/dL (65-115) 10/18/23 12:50 Calculated Osmolality 276 mOsm/kg (285-295) L 10/18/23 12:50 Calcium 8.7 mg/dL (8.5-10.5) 10/18/23 12:50 Total Bilirubin 0.4 mg/dL (0.15-1.2) 10/18/23 12:50 AST 61 U/L (0-40) H 10/18/23 12:50 ALT 74 U/L (0-41) H 10/18/23 12:50 Alkaline Phosphatase 72 U/L (40-130) 10/18/23 12:50 NT-Pro-B Natriuret Pep < 36 pg/mL (0-125) 10/18/23 12:50 Total Protein 6.6 g/dL (6.6-8.7) 10/18/23 12:50 Albumin 3.9 g/dL (3.5-5.2) 10/18/23 12:50 Globulin 2.7 g/dL (1.3-4.6) 10/18/23 12:50 All radiology interpretation(s) finalized by discharge EKG Data EKG 1: I personally reviewed and interpreted this EKG as follows: EKG interpretation date: 10/18/23 EKG interpretation time: 13:24 Interpretation: nsr hr [address] elevation qrs 122 qtc 438 Discharge Plan Discharge Patient Disposition: Home Clinical Impression: Bilateral edema of lower extremity, Weakness Condition: Stable Prescriptions: No Action pantoprazole 40 mg tablet,delayed release (DR/EC) 40 mg PO QAM (DME) Custom insoles See Rx Instructions .Route .MEDSUPPLY Qty: 1 0RF Rx Instructions: As directed (DME) Orthopedic Shoes See Rx Instructions .Route .MEDSUPPLY Qty: 1 0RF Rx Instructions: As directed (DME) compression stockings See Rx Instructions .Route .MEDSUPPLY Qty: 1 0RF Rx Instructions: right calf 37 cm right ankle 29cm right foot to knee 65cm left ankle 29cm left calf 41 cm left foot to knee 65cm divalproex [Depakote ER] 500 mg tablet extended release 24 hr 1,500 mg PO DAILY Qty: 270 3RF amitriptyline 50 mg Tablet 50 mg PO BEDTIME propranolol 20 mg tablet 20 mg PO BID Chantix Continuing Month Box 1 mg tablet See Rx Instructions .ROUTE .COMPLEX Rx Instructions: Take 1/2 tablet at breakfast for 7 days then 1 tablet in AM for 7 days then 1 tablet in AM and afternoon. Never after 4 pm. Always with food. Aimovig Autoinjector 140 mg/mL auto-injector 140 mg SUBCUT .Q28D Rx Instructions: give subcu monthly Discharge Orders: Discharge ED (Routine); Ordered 10/18/23 Ordered By: Mackenzie Wilson Referrals: Emeka Evans, DO [Primary Care Provider] - 4-7 days Discharge Diet: Advance as tolerated Discharge Activity: Resume usual activity Patient Instructions: Leg Edema (ED) Coding Level of Care Code ED Barker Peeler for Gilliang Fwclaudia NIH stroke score NIHSS Level Of Consciousness - 1a: 0 Level Of Consciousness Questions - 1b: Both Correct Level Of Consciousness Commands - 1c: Both Correct Best Gaze - 2: Normal Visual Edge - 3: No Visual Loss Facial Palsy - 4: Normal Motor Arm Right - 5: No Drift Motor Arm Left - 5: No Drift Motor Leg Right - 6: No Drift Motor Leg Left - 6: No Drift Limb Ataxia - 7: Absent Sensory - 8: Normal Best Language - 9: No Aphasia Dysarthia - 10: Normal Extinction And Inattention - 11: 0 Score Total Score: 0
[2023-10-18 12:57] LABS: Basophils # 0.1 10^3/uL (0.0-0.1); Basophils % 0.7 %; Eosinophils # 0.2 10^3/uL (0.0-0.8); Eosinophils % 2.5 %; Hematocrit 45.1 % (37-53); Lymphocytes % 37.6 %; Mean Corpuscular HGB Conc 32.8 g/dL (30-55); Mean Corpuscular Hemoglobin 32.2 pg (27-33); Mean Corpuscular Volume 98.3 fl (82-101); Mean Platelet Volume 10.2 fL (7.4-10.4); Monocytes # 0.9 10^3/uL (0.2-0.9); Monocytes % 10.7 %; Neutrophils # 3.85 10^3/uL (1.8-7.7); Neutrophils % 47.9 %; Nucleated Red Blood Cells % 0 %; Platelet Count 220 10^3/cmm (157-399); Red Blood Count 4.59 10^6/uL (3.85-5.65); Red Cell Distribution Width 14.1 % (12.1-15.1); White Blood Count 8.05 10^3/uL (3.29-11.43)
[2023-10-18 13:00] VITALS: BP 140/77; O2SAT 96
--- NOTE | 2023-10-18 13:04 | PC.PHAR ---
[facility] 10/18/23 1:03pm
--- NOTE | 2023-10-18 13:24 | ECG_ITS ---
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 Measurements Intervals Antonito Rate: 66 P: 52 NE: 177 QRS: -14 QRSD: 122 T: 62 QT: 425 QTc: 447 Interpretive Statements SINUS RHYTHM POSSIBLE RIGHT VENTRICULAR CONDUCTION DELAY [RSR (QR) IN V1/V2] Compared to ECG 05/01/2020 05:53:14 Sinus tachycardia no longer present Incomplete right bundle-branch block no longer present Myocardial infarct finding no longer present Electronically Signed On 10-18-2023 18:17:54 CDT by Cuauhtemoc Garcia M.D. [id number]
[2023-10-18 13:25] LABS: Alanine Aminotransferase 74 U/L (0-41); Albumin Level 3.9 g/dL (3.5-5.2); Alkaline Phosphatase 72 U/L (40-130); Anion Gap 15.9 (5-19); Aspartate Amino Transferase 61 U/L (0-40); Blood Urea Nitrogen 15 mg/dL (8-23); Calcium 8.7 mg/dL (8.5-10.5); Carbon Dioxide 24 mmol/L (22-29); Chloride 98 mmol/L (98-107); Creatinine Clr Calc Pharmacy 113.2568; Globulin 2.7 g/dL (1.3-4.6); Glomerular Filtration Rate 86.1 mL/min (90-130); Glucose 76 mg/dL (65-115); NT Pro B Type Natriuretic Pept < 36 pg/mL (0-125); Osmolality Calculated 276 mOsm/kg (285-295); Potassium 4.9 mmol/L (3.5-5.1); Sodium 133 mmol/L (136-145); Total Bilirubin 0.4 mg/dL (0.15-1.2); Total Protein 6.6 g/dL (6.6-8.7)
[2023-10-18 13:35] VITALS: O2SAT 95
== END 2023-10-18 14:54 | disposition home or self-care (01) ==
PROVIDERS: Emergency Provider Emergency Medicine; PCP Emergency Medicine Emergency Medical Services
DX: R60.0 Localized edema (principal); R53.1 Weakness; F17.210 Nicotine dependence, cigarettes, uncomplicated
CPT/HCPCS: 70450; 71045; 80053; 83880; 85025; 93005; 93971; 99285

== ENCOUNTER 2023-10-28 12:14 | Outpatient (CLI) | payer OTHER, SELFPAY ==
[2023-10-28 13:35] LABS: Valproic Acid Level 51.2 ug/mL (50-100)
== END 2023-10-28 12:15 | disposition home or self-care (01) ==
LOC: LAB 12:15
PROVIDERS: PCP Emergency Medicine Emergency Medical Services; Visit Provider Specialist
DX: G43.711 Chronic migraine without aura, intractable, with status migrainosus (principal); R41.82 Altered mental status, unspecified
CPT/HCPCS: 36415; 80164

== ENCOUNTER → 2024-02-25 07:55 | Outpatient (BNVA) | payer OTHER, SELFPAY | PROVIDERS: PCP Emergency Medicine Emergency Medical Services; Visit Provider Specialist | DX: G40.309 Generalized idiopathic epilepsy and epileptic syndromes, not intractable, without status epilepticus (principal); G43.711 Chronic migraine without aura, intractable, with status migrainosus; R26.9 Unspecified abnormalities of gait and mobility; G62.9 Polyneuropathy, unspecified; R03.0 Elevated blood-pressure reading, without diagnosis of hypertension; F17.200 Nicotine dependence, unspecified, uncomplicated; F43.10 Post-traumatic stress disorder, unspecified | CPT/HCPCS: 99214 ==

== ENCOUNTER 2024-03-25 09:05 | Outpatient (CLI) | payer OTHER, SELFPAY ==
[2024-03-25 09:23] VITALS: BMI 30.8
--- NOTE | 2024-03-25 09:25 | ECG_ITS ---
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 Interpretive Statements EXERCISE MIBI EXERCISE DATA: The patient was exercised by Johny protocol. Baseline heart rate was 98 beats per minute. Baseline blood pressure was 142/94 millimeters of mercury. Maximal predicted heart rate was 160 beats per minute. Maximum heart rate achieved was 146, which was 91% of the maximum predicted heart rate. Maximum blood pressure was 200/93 millimeters of mercury. Total exercise time was 5 seconds and 16 seconds. Maximum METs achieved was 7. The reason for ending the test was maximal effort achieved. The patient complained of shortness of breath during the stress test, which then resolved at the end of the test. ELECTROCARDIOGRAM: BASELINE: Showed sinus rhythm, incomplete right bundle branch block, no significant ST-T changes at the baseline noted. [] EXERCISE: At the peak exercise level, [] No significant ST-T changes suggestive of ischemia noted. [] RECOVERY: During the recovery period, heart rate dropped appropriately. No significant ST-T changes in the recovery suggestive of ischemia noted. PVCs seen.[] CONCLUSION: 1. Exercise capacity is fair. 2. Heart rate response was appropriate 3. Blood pressure response was appropriate. 4. Symptoms not suggestive of ischemia. 5. Electrocardiogram portion of the stress test was not suggestive of ischemia. 6. Nuclear scan will be documented separately. Electronically Signed On 04-12-2024 13:07:12 CHUCK BONER by Eladio Menendez M.D. [email or web address] [id number]
--- NOTE | 2024-03-25 09:26 | NMCV_ITS ---
NM vega perf SPECT r/s* [id number] Hair John Age: 58 Gender: M : 1965 Exam Date: 03/25/2024 10:03 Ordering Phys: Virginia Mack APRN Technologist: JASON Castrejon Exam Location: [facility] Indications: cp STRESS TEST Please see separate stress test report in [facility] for full findings IMAGE PROTOCOL Rest/Stress 1 Exercise Day Radiopharmaceutical Dose (mCi) Administration Site Administered by Rest: Tc-99m 10.8 IV Jeanette Galdamez, ACCOUNT SUPPORT SPECIALIST Sestamibi Stress:Tc-99m 32.6 IV Jeanette Galdamez, ACCOUNT SUPPORT SPECIALIST Sestamibi Rest: 25-Mar-2024 60 Discovery 630 Stress: 25-Mar-2024 30 Discovery 630 Radiopharmaceutical was injected at 85 % maximum heart rate. Images obtained in supine and prone position. SPECT RESULTS Technical Quality: Good Raw Data Analysis: Normal Image Corrections: No attenuation or motion correction applied Summed Stress Score: 2 Summed Rest Score: 0 Summed Difference Score: 2 PERFUSION FINDINGS Small area of partially reversible perfusion defect is seen in the inferolateral wall. This is consistent with small area of prior infarct with minimal jack-infarct ischemia in left circumflex artery territory. FUNCTIONAL RESULTS (calculated via Gated SPECT) Stress Image LV EF (%): 72 Stress EDV (mL):75 TID: 1.7 Stress ESV (mL):21 FUNCTIONAL FINDINGS: There is normal left ventricular systolic function. IMPRESSIONS 1. 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 LV systolic function is normal 3. TID ratio is elevated. Eladio Menendez MD (Electronically Signed) Final Date: 26 March 2024 13:00 S
[2024-03-25 10:49] VITALS: BP 128/80; PULSE 94
== END 2024-03-25 09:06 | disposition home or self-care (01) ==
LOC: CDL 09:06
PROVIDERS: PCP Nurse Practitioner Family; Visit Provider Nurse Practitioner Family
DX: R07.9 Chest pain, unspecified (principal); I25.2 Old myocardial infarction; R93.1 Abnormal findings on diagnostic imaging of heart and coronary circulation
CPT/HCPCS: 36415; 78452; 93017; A9500

== ENCOUNTER → 2024-04-14 07:48 | Outpatient (BNVA) | payer OTHER, SELFPAY | PROVIDERS: PCP Nurse Practitioner Family; Referring Provider Specialist; Visit Provider Specialist | DX: R26.9 Unspecified abnormalities of gait and mobility (principal); G62.9 Polyneuropathy, unspecified | CPT/HCPCS: 95913 ==

== ENCOUNTER → 2024-04-21 11:41 | Outpatient (BNVA) | payer OTHER, SELFPAY | PROVIDERS: PCP Nurse Practitioner Family; Visit Provider Specialist | DX: G40.309 Generalized idiopathic epilepsy and epileptic syndromes, not intractable, without status epilepticus (principal); G62.89 Other specified polyneuropathies; R41.82 Altered mental status, unspecified; Z87.891 Personal history of nicotine dependence; R26.9 Unspecified abnormalities of gait and mobility; G47.10 Hypersomnia, unspecified; G43.711 Chronic migraine without aura, intractable, with status migrainosus | CPT/HCPCS: 80053; 82607; 83520; 86235; 86334; 99214 ==

== ENCOUNTER 2024-05-01 08:52 | Outpatient (CLI) | payer OTHER, SELFPAY ==
--- NOTE | 2024-05-01 09:15 | CT_ITS ---
WS: [id number] LDCT LUNG CANCER SCREENING TECHNIQUE: Noncontrast CT of the chest with coronal and sagittal reformatted images. CLINICAL INFORMATION: Z87.891 - Personal history of nicotine dependence COMPARISON: None. DLP: 98.80 mGy.cm DIvol: Mean CTDIvol: 2.20 (mGy) All CT scans at [facility] use at least one of these dose optimization techniques: automated exposure control; mA and/or kV adjustment per patient size (includes targeted exams where dose is matched to clinical indication); or iterative reconstruction. FINDINGS: Moderate chronic emphysematous changes. Hazy perihilar groundglass infiltrates likely infectious or inflammatory. Recommend 1 month follow-up. Subsegmental atelectasis in the lung bases. No mediastinal or hilar lymphadenopathy. No axillary lymphadenopathy. Aberrant RIGHT subclavian artery. Aortic calcification. Coronary calcification. Adrenal glands are normal. Small esophageal hiatal hernia. Moderate thoracic kyphosis. Chronic appearing anterior wedging in the mid and upper thoracic spine CT/CT lung screening [id number] IMPRESSION: Hazy perihilar groundglass infiltrates likely infectious or inflamm atory. Recommend 6-week follow-up. LUNG-RADS: 3-Probably Benign FOLLOW UP: 1 Month LDCT
== END 2024-05-01 08:53 | disposition home or self-care (01) ==
PROVIDERS: PCP Nurse Practitioner Family; Visit Provider Specialist
DX: Z12.2 Encounter for screening for malignant neoplasm of respiratory organs (principal); Z87.891 Personal history of nicotine dependence; J43.8 Other emphysema; R91.8 Other nonspecific abnormal finding of lung field; J98.11 Atelectasis; R93.89 Abnormal findings on diagnostic imaging of other specified body structures; I70.0 Atherosclerosis of aorta; I25.10 Atherosclerotic heart disease of native coronary artery without angina pectoris; K44.9 Diaphragmatic hernia without obstruction or gangrene; M40.294 Other kyphosis, thoracic region; M48.54XD Collapsed vertebra, not elsewhere classified, thoracic region, subsequent encounter for fracture with routine healing
CPT/HCPCS: 71271

== ENCOUNTER 2024-05-05 10:52 | Outpatient (CLI) | payer OTHER, SELFPAY ==
--- NOTE | 2024-05-05 11:00 | MR_ITS ---
WS: [id number] MRI LUMBAR SPINE NONCONTRAST TECHNIQUE: Sagittal T1, T2 and STIR imaging. Axial T1 and T2 imaging. CLINICAL INFORMATION: G62.89 - Other specified polyneuropathies COMPARISON: None. FINDINGS: Mild lumbar curve. No acute compression. L1-L2: RIGHT paracentral protrusion. Impingement RIGHT subarticular recess and traversing RIGHT L2 nerve root. Mild facet arthropathy. L2-L3: Mild annular bulging. Slight effacement of the ventral thecal sac. Mild facet arthropathy. Mild central canal stenosis. Tiny LEFT subarticular protrusion impinges the traversing LEFT L3 nerve root. L3-L4: Mild annular bulging. Moderate narrowing of the thecal sac mainly due to prominent epidural fat. Crowding of the cauda equina nerve rootlets. Tiny central protrusion with impingement on the subarticular recess. Mild LEFT greater than RIGHT foraminal narrowing. L4-L5: Mild annular bulging. Mild to moderate narrowing of the thecal sac mainly due to prominent epidural fat. Narrowing of the subarticular recess. Mild LEFT foraminal narrowing. Moderate facet arthropathy. L5-S1: Mild annular bulging. LEFT eccentric disc bulging. Spinal canal and foramen are patent. Moderate facet arthropathy. Visualized pelvic bony structures: Normal. Paravertebral soft tissues: Normal. Chronic anterior wedging in the midthoracic spine with endplate Schmorl's nodes. MR/MR lumbar spine wo con* [id number] IMPRESSION: 1. Mild lumbar curve. No acute compression. 2. RIGHT paracentral protrusion L1-2 significantly impinges the RIGHT subartic ular recess and traversing RIGHT L2 nerve root. 3. Moderate narrowing of the thecal sac worse at L3-4 due to prominent dorsal epidural fat. Shallow central protrusion at L3-4. Crowding of the cauda equina nerve rootlets at this level. 4. Moderate narrowing of thecal sac L4-5 with significant impingement on the t raversing LEFT greater than RIGHT L5 nerve roots. Prominent epidural fat contri butes to stenosis.
== END 2024-05-05 10:53 | disposition home or self-care (01) ==
LOC: RAD 10:53
PROVIDERS: PCP Nurse Practitioner Family; Visit Provider Specialist
DX: G62.89 Other specified polyneuropathies (principal); R26.9 Unspecified abnormalities of gait and mobility; M43.8X6 Other specified deforming dorsopathies, lumbar region; M51.26 Other intervertebral disc displacement, lumbar region; R93.7 Abnormal findings on diagnostic imaging of other parts of musculoskeletal system; M48.061 Spinal stenosis, lumbar region without neurogenic claudication; M47.896 Other spondylosis, lumbar region; M51.369 Other intervertebral disc degeneration, lumbar region without mention of lumbar back pain or lower extremity pain; M51.379 Other intervertebral disc degeneration, lumbosacral region without mention of lumbar back pain or lower extremity pain; M47.897 Other spondylosis, lumbosacral region; M48.54XD Collapsed vertebra, not elsewhere classified, thoracic region, subsequent encounter for fracture with routine healing; M51.44 Schmorl's nodes, thoracic region
CPT/HCPCS: 72148

== ENCOUNTER 2024-05-08 09:35 | Outpatient (CLI) | payer OTHER, SELFPAY ==
--- NOTE | 2024-05-08 09:41 | USR_ITS ---
PROCEDURE INFORMATION: Exam: US Abdomen, Limited; Right Upper Quadrant Exam date and time: 05/08/2024 9:52 AM Age: 58 years old Clinical indication: Abnormal findings; Abnormal lab test; Elevated liver enzymes; Additional info: Elevated liver enzymes/attn: Liver. No history of recent trauma or surgery is provided. TECHNIQUE: Imaging protocol: Real time ultrasound of the abdomen with image documentation. Limited exam focused on the right upper quadrant. COMPARISON: CT lung screening [id number] 05/01/2024 9:10 AM. No previous ultrasound is currently available. FINDINGS: Liver: The liver measures 14.9 cm. The hepatic echotexture is subtly heterogeneous, increased. No contour abnormalities are currently appreciated. Gallbladder: No echogenic obstructive calculus, wall thickening or pericholecystic fluid is appreciated. There appears to be some trace gallbladder sludge. No sonographic Julio's sign is currently provided. Biliary ducts: No biliary ductal dilatation or echogenic calculus is appreciated. The common bile duct measures 0.5 cm. Pancreas: The pancreas is largely obscured. Right kidney: The right kidney measures 11.1 x 6.2 x 5.7 cm. No echogenic obstructive calculus or hydronephrosis is appreciated. Aorta: There is some aortic obscuration overall with distal aorta 1.3 cm. 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 Portal venous: Some central portal flow is demonstrated with unremarkable velocity. Intraperitoneal space: No significant free fluid is appreciated. There is some bowel-gas, penetration artifact. No other significant interval changes are appreciated. US/US abdomen limited [id number] IMPRESSION: 1. There appears to be subtle heterogeneity of the hepatic parenchyma overall. Consider hepatobiliary laboratory profile studies. 2. No free fluid collections are appreciated.
== END 2024-05-08 09:36 | disposition home or self-care (01) ==
LOC: RAD 09:35
PROVIDERS: PCP Nurse Practitioner Family; Visit Provider Nurse Practitioner Family
DX: Z01.89 Encounter for other specified special examinations (principal); R93.2 Abnormal findings on diagnostic imaging of liver and biliary tract
CPT/HCPCS: 76705

== ENCOUNTER 2024-06-04 12:07 | Outpatient (CLI) | payer OTHER, SELFPAY ==
--- NOTE | 2024-06-04 12:12 | MR_ITS ---
WS: [id number] MRI THORACIC SPINE WITHOUT CONTRAST TECHNIQUE: Sagittal T1, T2 and STIR imaging. Axial T2 imaging. Noncontrast imaging obtained. CLINICAL INFORMATION: BACK PAIN COMPARISON: None. FINDINGS: Mild thoracic curve. Moderate thoracic kyphosis. Chronic anterior wedging in the mid and upper thoracic spine. No acute appearing compression fractures. Cord signal is normal. Moderate facet arthropathy lower thoracic spine. Prominent epidural fat in the mid and upper thoracic canal. A few endplate Schmorl's nodes. Tiny shallow central protrusions at T4-T5 T6-T7 and T7-T8. Mild central canal stenosis at T5-T6 and T6-T7 with prominent epidural fat dorsally. Adrenal glands are normal. Normal caliber thoracic aorta. Small esophageal hiatal hernia MR/MR thoracic spin wo con* [id number] IMPRESSION: 1. Moderate thoracic kyphosis. No acute appearing compression fractures. 2. Chronic anterior wedging at T3 T4 T5 T6 and T7. 3. Mild central canal stenosis T5-T6 and T6-T7 due to small central disc protr usions in combination with prominent dorsal epidural fat.
--- NOTE | 2024-06-04 12:12 | MR_ITS ---
WS: [id number] MRI LUMBAR SPINE NONCONTRAST TECHNIQUE: Sagittal T1, T2 and STIR imaging. Axial T1 and T2 imaging. CLINICAL INFORMATION: BACK PAIN COMPARISON: None. FINDINGS: Mild lumbar curve. No acute compression. L1-L2: Shallow RIGHT paracentral protrusion. Narrowing of the RIGHT subarticular recess. Mild facet arthropathy. L2-L3: Mild annular bulging with a LEFT subarticular protrusion. Impingement of the LEFT subarticular recess. Mild facet arthropathy. Slight encroachment on the proximal exiting LEFT L2 nerve root. L3-L4: Mild to moderate narrowing of the thecal sac due to mild disc bulging combination with facet arthropathy and prominent epidural fat. Mild LEFT foraminal narrowing with a small LEFT foraminal protrusion. Moderate facet arthropathy. L4-L5: Mild annular bulging with moderate narrowing of the thecal sac. Impingement on the traversing LEFT greater than RIGHT L5 nerve roots. Moderate facet arthropathy. Prominent epidural fat contributes to thecal sac narrowing. Mild LEFT greater than RIGHT foraminal narrowing. L5-S1: Mild annular bulging with a tiny central protrusion. Slight contact of the traversing S1 nerve roots. Foramina are patent. Moderate facet arthropathy. Visualized pelvic bony structures: Normal. Paravertebral soft tissues: Normal. MR/MR lumbar spine wo con* [id number] IMPRESSION: 1. Mild lumbar curve. No acute compression. 2. Mild to moderate narrowing of the thecal sac L3-L4 and L4-L5 due to disc bu lging combination with prominent dorsal epidural fat. Moderate facet arthropat hy with ligamentum flavum hypertrophy at these levels. 3. RIGHT subarticular protrusion L1-2. 4. LEFT paracentral and subarticular protrusion L2-3 impinges the traversing L EFT L3 nerve root and encroaches on the exiting LEFT L2 nerve root. 5. Mild bilateral L4-5 foraminal narrowing. 6. Moderate facet arthropathy L3-L5.
== END 2024-06-04 12:08 | disposition home or self-care (01) ==
PROVIDERS: PCP Nurse Practitioner Family; Visit Provider Nurse Practitioner Family
DX: M48.04 Spinal stenosis, thoracic region (principal); M40.294 Other kyphosis, thoracic region; M48.54XD Collapsed vertebra, not elsewhere classified, thoracic region, subsequent encounter for fracture with routine healing; M51.24 Other intervertebral disc displacement, thoracic region; M43.8X4 Other specified deforming dorsopathies, thoracic region; M47.894 Other spondylosis, thoracic region; R93.7 Abnormal findings on diagnostic imaging of other parts of musculoskeletal system; M51.44 Schmorl's nodes, thoracic region; K44.9 Diaphragmatic hernia without obstruction or gangrene; M43.8X6 Other specified deforming dorsopathies, lumbar region; M51.369 Other intervertebral disc degeneration, lumbar region without mention of lumbar back pain or lower extremity pain; M47.896 Other spondylosis, lumbar region; M24.28 Disorder of ligament, vertebrae; M51.26 Other intervertebral disc displacement, lumbar region; M48.061 Spinal stenosis, lumbar region without neurogenic claudication; M51.379 Other intervertebral disc degeneration, lumbosacral region without mention of lumbar back pain or lower extremity pain; M47.897 Other spondylosis, lumbosacral region
CPT/HCPCS: 72146; 72148

== ENCOUNTER 2024-07-21 20:00 | Outpatient (CLI) | payer OTHER, SELFPAY | END 2024-07-21 20:01 | disposition home or self-care (01) | LOC: SLEEP 07-22 05:15 | PROVIDERS: PCP Nurse Practitioner Family; Visit Provider Nurse Practitioner Family | DX: G47.10 Hypersomnia, unspecified (principal); R41.82 Altered mental status, unspecified; G47.36 Sleep related hypoventilation in conditions classified elsewhere | CPT/HCPCS: 95810 ==

== ENCOUNTER → 2024-08-10 09:13 | Outpatient (BNVA) | payer OTHER, SELFPAY | PROVIDERS: PCP Nurse Practitioner Family; Referring Provider Nurse Practitioner Family; Visit Provider Anesthesiology Pain Medicine | DX: M54.9 Dorsalgia, unspecified (principal); M47.816 Spondylosis without myelopathy or radiculopathy, lumbar region | CPT/HCPCS: 99204 ==

== ENCOUNTER 2024-09-16 14:57 | Outpatient (CLI) | payer OTHER, SELFPAY ==
--- NOTE | 2024-09-16 15:07 | USCV_ITS ---
Hair John Age: 59 Gender: M : 1965 Exam Date: 09/16/2024 15:32 Ordering Phys: Steve Keating MD Technologist: [place]am [place] [facility] [place]: sob cp BP: 130 / 185 HR: 78 Rhythm: Sinus Technical Quality: Adequate MEASUREMENTS (Male / Female) Normal Values 2D ECHO LV Diastolic Diameter PLAX 4.6 cm 4.2 - 5.9 / 3.9 - 5.3 cm IVS Diastolic Thickness 1.2 cm 0.6 - 1.0 / 0.6 - 0.9 cm IVS Systolic Thickness 1.4 cm LVPW Diastolic Thickness 1.5 cm 0.6 - 1.0 / 0.6 - 0.9 cm LVPW Systolic Thickness 1.9 cm LVOT Diameter 2.1 cm LV Ejection Fraction 2D Teich 69.0 % LV Ejection Fraction MOD 4C 67.7 % LV Ejection Fraction MOD 2C 52.2 % LV Ejection Fraction 2C AL 53.4 % LA Diameter 4.8 cm RA Systolic Volume 4C AL 34.6 ml RA Systolic Volume 4C MOD 33.5 ml Aorta at Sinotubular Diameter 3.2 cm M-MODE LA Ao Ratio MM 1.2 AV Cusp Separation MM 1.9 cm DOPPLER AV Peak Velocity 131.0 cm/s LVOT Peak Velocity 85.0 cm/s AV Area Cont Eq vti 3.2 cm squared AV Area Cont Eq pk 2.2 cm squared MV Peak Velocity 113.0 cm/s MV Area PHT 3.5 cm squared Mitral E to A Ratio 0.8 TV Peak Velocity 226.5 cm/s TR Peak Velocity 229.0 cm/s TR Peak Gradient 21.0 mmHg TV Peak E Velocity 68.0 cm/s PV Peak Velocity 88.0 cm/s FINDINGS Left Ventricle Normal left ventricular size and systolic function, EF 57%. Mild global left ventricular hypertrophy. Garde 2 LV diastolic dysfunction. Right Ventricle The right ventricle is normal in size and function. Right Atrium The right atrium is normal in size. Left Atrium The left atrium is mildy enlarged. Mitral Valve Structurally normal mitral valve without significant stenosis or prolapse. There is no mitral regurgitation. Aortic Valve Structurally normal aortic valve without significant sclerosis or stenosis. There is no aortic regurgitation. Tricuspid Valve Structurally normal tricuspid valve without trace regurgitation. Pulmonary artery systolic pressure is normal. Pulmonic Valve Structurally normal pulmonic valve without significant stenosis. There is no pulmonic regurgitation. Pericardium Normal pericardium without effusion. Aorta Normal ascending aorta dimension. IVC The inferior vena caval is not well visualized. CONCLUSIONS 1. Normal left ventricular systolic function, EF 57% 2. Grade 2 left ventricular diastolic dysfunction. 3. No significant valvular abnormalities Fortino Caldwell MD, FACC (Electronically Signed) Final Date: 19 September 2024 19:35 S
== END 2024-09-16 14:58 | disposition home or self-care (01) ==
LOC: RAD 14:58
PROVIDERS: PCP Family Medicine Geriatric Medicine; Visit Provider Family Medicine Geriatric Medicine
DX: Z01.89 Encounter for other specified special examinations (principal); R06.09 Other forms of dyspnea; R00.0 Tachycardia, unspecified; I50.30 Unspecified diastolic (congestive) heart failure; I51.7 Cardiomegaly
CPT/HCPCS: 93306

== ENCOUNTER → 2024-10-20 11:37 | Outpatient (BNVA) | payer OTHER, SELFPAY | PROVIDERS: PCP Family Medicine Geriatric Medicine; Visit Provider Specialist | DX: G40.309 Generalized idiopathic epilepsy and epileptic syndromes, not intractable, without status epilepticus (principal); R41.82 Altered mental status, unspecified; R41.3 Other amnesia; G62.89 Other specified polyneuropathies; R26.9 Unspecified abnormalities of gait and mobility; G43.711 Chronic migraine without aura, intractable, with status migrainosus; G47.10 Hypersomnia, unspecified | CPT/HCPCS: 36415; 80164; 82607; 82746; 83520; 99214 ==

== ENCOUNTER 2024-11-23 08:47 | Outpatient (CLI) | payer OTHER, SELFPAY ==
--- NOTE | 2024-11-23 08:55 | USCV_ITS ---
Hair John Age: 59 Gender: M : 1965 Exam Date: 11/23/2024 09:14 Ordering Phys: Steve Keating MD Technologist: Exam Location: [facility] [place] Indication: AAA screening HISTORY: Diameter (cm) AP x Transverse x Length Velocity (cm/s) Waveform Prox Aorta: x 1.31 x 43.10 Triphasic Mid Aorta: 1.81 x 2.10 x 33.80 Triphasic Distal Aorta: 1.68 x 2.26 x 47.60 Triphasic Right Iliac Prox: 1.38 x 1.38 x 35.50 Triphasic Left Iliac Prox: 1.25 x 1.04 x 68.84 Triphasic Stent Prox Landing x x Aneurysmal Sac Max x x Lt Lat Sac Dim Rt Lat Sac Dim Stent Dist Landing x x Right Iliac Stent x x Left Iliac Stent x x Right Renal Art Left Renal Art FINDINGS: GH/ CONCLUSIONS No evidence of abdominal aortic or bilateral iliac aneurysm. John Mejia MD (Electronically Signed) Final Date: 23 November 2024 10:21 S
[2024-11-23 10:50] LABS: Prostate Specific Antigen 3.870 ng/mL (0-4)
== END 2024-11-23 08:48 | disposition home or self-care (01) ==
PROVIDERS: PCP Family Medicine Geriatric Medicine; Visit Provider Family Medicine Geriatric Medicine
DX: Z01.89 Encounter for other specified special examinations (principal); I71.40 Abdominal aortic aneurysm, without rupture, unspecified; R97.20 Elevated prostate specific antigen [PSA]
CPT/HCPCS: 36415; 76706; 84153

== ENCOUNTER 2024-12-11 20:38 | Emergency (ER) | payer OTHER, SELFPAY ==
[2024-12-11 20:42] VITALS: BP 160/96; PULSE 89; RESP 18; TEMP 36.5; O2SAT 95
--- OUTSIDE RECORDS SUMMARY | 2024-12-11 20:43 | XMS_ITS | Patient Health Record ---
Author Organization [facility] Address [address] [place] [address] Care Team Providers Care Operating Room Assistant Name Role Phone [facility] Emeka DAHL Primary Care Provider Un available Yosef Blackmon Unavailable [phone] [place], [place] Unavailable Unavailable Allergies Allergen (clinical drug ingredient) Drug/Non Drug Allergy documented on EMR Reaction Allergy Type Onset Date Status No Known Drug Allergy Unknown Drug Allergy Active Reason For Referral No Information Medications Medication SIG (Take, Route, Frequency, Duration) Notes Start Date End Date Status Divalproex Sodium 500 MG Tablet Delayed Release 3 tablets Orally Once a day Active Propranolol HCl 20 MG Tablet 1 tablet Or ally Twice a day Active Lisinopril 20 MG Tablet 1 tablet Orally Once a day Active Amitriptyline HCl 50 MG Tablet 1 tablet at bedtime Orally Once a day Active Pantoprazole Sodium 40 MG Tablet Delayed Release 1 tablet Orally Once a day Active FLUoxetine HCl 20 MG Capsule 1 capsule O rally Once a day Active Cholecalciferol 50 MCG (1999) Tablet 1 tablet Orally Once a day Active Social History Tobacco Use: Social History Observation Description Date Details (start date - stop date) Current Smoker NA - NA Social History Drugs/Alcohol: Social Info Question Answer Notes Alcohol Screen (Audit-C) Did you have a drink containing alcohol in the past year? No Points 0 Interpretation Negative Tobacco Use: Social Info Question Answer Notes xTobacco Use/Smoking Are you a current smoker Problems Problem Type SNOMED Code ICD Code Onset Dates Problem Status W/U Status Risk Notes Problem History of polyp of colon (situation) (531976733) History of colon polyps (Z86.010) Active confirmed Problem Gastroesophageal reflux disease (643238177) Gastroesophageal reflux disease, unspecified whether esophagitis present (K21.9) Active confirmed Plan Of Treatment No Information Insurance Providers Payer Name Payer Address Payer Phone Subscriber Number Group Number Insured Name Patient Relationship to Insured Coverage Start Date Coverage End Date [employer] [address] [place] [phone] [id number] Hair John Self - patient is the insured Medical (General) History Medical History History ICD Code mumps chicken pox migraine headache hypertension depression seizure burn pit exposure PTSD Surgical History Surgery Date(Month/Year) none Hospitalization History Reason Date(Month/Year) 3 other times for [facility] 08/2016
--- OUTSIDE RECORDS SUMMARY | 2024-12-11 20:43 | XMS_ITS | Patient Health Record ---
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 Role Phone [facility] Primary Care Provider Diamond YUN Perez Unavailable [phone] [place], [place] Unavailable Unavailable ISMAEL PABLO Unavailable [phone] Allergies Allergen (clinical drug ingredient) Drug/Non Drug Allergy documented on EMR Reaction Allergy Type Onset Date Status ranitidine raNITIdine Unknown Drug Allergy Activ e Results Component Value Reference Range Notes Urinalysis, Routine Reviewed date:10/22/2024 09:51:24 AM Interpretation: Performing Lab: Notes/Report: Urine-Color yellow Appearance clear Glucose - Bilirubin - Ketones - Specific Robertson 1.010 Occult Blood - pH 7.0 Urine Protein - Urobilinogen,Semi-Qn - Nitrite, Urine - WBC Esterase 3+ PSA-Diagnostic Reviewed date:11/23/2024 11:07:33 AM Interpretation: Performing Lab: Notes/Report: UBASE - Urinary Tract Infect ion (HTRx) Reviewed date:10/26/2024 08:01:28 AM Interpretation: Performing Lab:, [facility] at [address], Phone - [phone], Director - [id number] Notes/Report: Acinetobacter baumannii 0 19.961 - 24.689 p pm Acinetobacter baumannii Not Detected 19.961 - 24.689 p pm Citrobacter freundii 0 23.000 - 32.015 ppm Citrobacter freundii Not Detected 23.000 - 32.015 ppm Enterobacter aerogenes, cloacae 0 23.000 - 32.290 ppm Enterobacter aerogenes, cloacae Not Detected 23.000 - 32.290 ppm Enterococcus faecalis, faecium 0 26.000 - 3 3.043 ppm Enterococcus faecalis, faecium Not Detected 26.000 - 3 3.043 ppm Escherichia coli 0 23.000 - 28.500 ppm Escherichia coli Not Detected 23.000 - 28.500 ppm Klebsiella pneumoniae, oxytoca 0 23.000 - 3 1.865 ppm Klebsiella pneumoniae, oxytoca Not Detected 23.000 - 3 1.865 ppm Morganella morganii 0 19.961 - 24.689 ppm Morganella morganii Not Detected 19.961 - 24.689 ppm Proteus mirabilis, vulgaris 0 23.000 - 28.5 00 ppm Proteus mirabilis, vulgaris Not Detected 23.000 - 28.5 00 ppm Pseudomonas aeruginosa 0 23.000 - 31.801 pp m Pseudomonas aeruginosa Not Detected 23.000 - 31.801 pp m Staphylococcus aureus 0 26.000 - 31.595 ppm Staphylococcus aureus Not Detected 26.000 - 31.595 ppm Streptococcus agalactiae (Group B Strep) 0 26.000 - 32.435 ppm Streptococcus agalactiae (Group B Strep) Not Detected 26.000 - 32.435 ppm Iqra albicans, parapsilosis, tropicalis 0 23.000 - 30.347 ppm Iqra albicans, parapsilosis, tropicalis Not Detecte d 23.000 - 30.347 ppm Iqra glabrata (Nakaseomyces glabratus) 0 23.000 - 31.618 ppm Iqra glabrata (Nakaseomyces glabratus) Not Detected 23.000 - 31.618 ppm Iqra krusei (Pichia kudriavzevii) 0 23.0 00 - 30.873 ppm Iqra krusei (Pichia kudriavzevii) Not Detected 23.0 00 - 30.873 ppm Serratia marcescens 0 23.000 - 31.581 ppm Serratia marcescens Not Detected 23.000 - 31.581 ppm Streptococcus pyogenes (Group A strep) 0 19 .961 - 24.689 ppm Streptococcus pyogenes (Group A strep) Not Detected 19 .961 - 24.689 ppm Staphylococcus saprophyticus 0 19.961 - 24. 689 ppm Staphylococcus saprophyticus Not Detected 19.961 - 24. 689 ppm Staphylococcus epidermidis, haemolyticus, lugdunensis 0 19.961 - 24.689 ppm Staphylococcus epidermidis, haemolyticus, lugdunensis Not Detected 19.961 - 24.689 ppm Urinalysis, Routine Reviewed date:11/27/2024 11:42:42 AM Interpretation: Performing Lab: Notes/Report: Urine-Color yellow Appearance clear Glucose - Bilirubin - Ketones - Specific Robertson 1.010 Occult Blood - pH 7.0 Urine Protein - Urobilinogen,Semi-Qn - Nitrite, Urine -1+ Reason For Referral No Information Medications Medication SIG (Take, Route, Frequency, Duration) Notes Start Date End Date Status Pantoprazole Sodium 40 MG 1 tablet 1/2 to 1 hour before morning meal Orally Once a day Active Albuterol Active Erenumab-aooe 140 MG/ML as directed Subcutaneous Active Propranolol HCl Acti ve Cyanocobalamin 500 MCG 1 tablet Orally O nce a day Active Amitriptyline HCl 50 MG 1 tablet at bedt germaine Orally Once a day Active Divalproex Sodium 500 MG 1 tablet Orally Twice a day Active FLUoxetine HCl 40 MG 1 capsule Orally On ce a day Active Folic Acid Active Finasteride 5 MG 1 tablet Orally Once a day; Duration: 30 days 11/27/2024 11/22/2025 Active Fluticasone-Salmeterol(s ensor) Active Torsemide 100 MG 1 tablet Orally Once a day Active Tamsulosin HCl 0.4 MG 1 capsule Orally O nce a day; Duration: 30 days 10/22/2024 10/17/2025 Not-Taking Acetaminophen Active Social History Tobacco Use: Social History Observation Description Date Details (start date - stop date) Current Smoker NA - NA Tobacco Control (Standard) Question Answer Notes Tobacco use: Current smoker How often do you smoke cigarettes? Every day How many cigarettes a day do you smoke? 11-20 AUDIT-C (Standard) Question Answer Notes Did you have a drink containing alcohol in the p ast year? No Points 0 Interpretation Negative Problems Problem Type SNOMED Code ICD Code Onset Dates Problem Status W/U Status Risk Notes Problem Benign prostatic hyperplasia (656652857) BPH (benign prostatic hyperplasia) (N40.0) Active confirmed Vital Signs Heart Rate 83 /min 11/27/2024 Blood pressure diastolic 87 mm Hg 11/27/2024 Height-cm 185.42 cm 11/27/2024 Weight-kg 105.69 kg 11/27/2024 Height 73 in 11/27/2024 Blood pressure systolic 158 mm Hg 11/27/2024 Weight 233 lbs 11/27/2024 BMI 30.74 kg/m2 11/27/2024 Procedures Procedure Date Ordered Date Performed Result Body Sit e Bladder Scan 10/22/2024 10/22/2024 190 ml Bladder Scan 11/27/2024 11/27/2024 N/A Encounters Encounter Location Date Provider Diagnosis [facility] [address] [place] [address] 10/22/2024 ISMAEL SOLIZS Elevated PSA R97.20 ; BPH (benign prostatic hyperplasia) N40.0 and Acute prostatitis N41.0 [facility] [address] [place] [address] 11/27/2024 ISMAEL SOLIZS BPH (benign prostati c hyperplasia) N40.0 ; Elevated PSA R97.20 and Acute prostatitis N41.0 [facility] [address] [place] [address] 10/15/2024 YUN VILLATORO Assessments Encounter Date Diagnosis (ICD Code) Assessment Notes Treatment Notes Treatment Clinical Notes Section Notes 10/22/2024 BPH (benign prostatic hyperplasia) (ICD-10 - N40.0) 10/22/2024 Elevated PSA (ICD-10 - R97.20) We discussed the controversies surrounding PSA screening as well as the implications of an elevated PSA and indications for a an MRI of the prostate to evaluate for any suspicous lesions and possible need for transrectal ultrasound-guided biopsy of the prostate. He has abnormal UA with elevated PVR and s/s consistent with uncontrolled BPH and prostatitis. Will treat prostatitis and start on tamsulosin. Repeat PSA in 3w. If it remains above 4, then we will proceed with MRI. 11/27/2024 BPH (benign prostatic hyperplasia) (ICD-10 - N40.0) No significant improvement in LUTS after starting tamsulosin. His PVR actually went up some from 190 to 212cc. We discussed option for adding proscar for maximal medical management versus surgical escalation of care with transurethral procedure. Pros and cons of each reviewed and he would like to proceed with medical management. He understands peak effects from proscar in 6m. 11/27/2024 Elevated PSA (ICD-10 - R97.20) His PSA has declined to 3.8 after treating prostatitis and starting tamsulosin for BPH. Will repeat PSA in 6m. 10/22/2024 Acute prostatitis (ICD-10 - N41.0) 11/27/2024 Acute prostatitis (ICD-10 - N41.0) Resolved after Bactrim. Plan Of Treatment Next Appt Details Provider Name:ISMAEL ZHENG, 05/28/2025 11:20:00 AM, [address] [place], [address], Insurance Providers Payer Name Payer Address Payer Phone Subscriber Number Group Number Insured Name Patient Relationship to Insured Coverage Start Date Coverage End Date [employer] [address] [place] [id number] [place] Self - patient is the insured Medical (General) History Medical History History ICD Code Elevated PSA insomnia gastro-esophageal reflux disease HTN depression anxiety seizures PTSD Surgical History Surgery Date(Month/Year) oral surgery all top teeth removed 12/07 24 Hospitalization History Reason Date(Month/Year) seizures
--- NOTE | 2024-12-12 00:32 | CTR_ITS ---
PROCEDURE INFORMATION: Exam: CT Cervical Spine Without Contrast Exam date and time: 12/12/2024 12:48 AM Age: 59 years old Clinical indication: Injury or trauma; Blunt trauma; Fall off of porch with headstrike. Laceration to RT occipital. C/O of TOURE with RT sided rib pain. ; Additional info: Fall head inj TECHNIQUE: Imaging protocol: Computed tomography of the cervical spine without contrast. Radiation optimization: All CT scans at this facility use at least one of these dose optimization techniques: automated exposure control; mA and/or kV adjustment per patient size (includes targeted exams where dose is matched to clinical indication); or iterative reconstruction. COMPARISON: CT head wo con* [id number] 12/12/2024 12:47 AM RADIATION DOSE METRICS: Total DLP (mGy-cm): 308.25 FINDINGS: Bones: Normal alignment. Vertebral body heights are well-maintained. Chronic T1 spinous process fracture. No evidence of acute fracture. Mild degenerative changes of the cervical spine. Lungs: Lung apices are normal. Soft tissues: The soft tissues are within normal limits. CT/CT cervical spin wo con* [id number] IMPRESSION: No evidence of acute fracture.
--- NOTE | 2024-12-12 00:32 | CTR_ITS ---
PROCEDURE INFORMATION: Exam: CT Head Without Contrast Exam date and time: 12/12/2024 12:47 AM Age: 59 years old Clinical indication: Injury or trauma; Blunt trauma (contusions or hematomas); Fall off of porch with headstrike. Laceration to RT occipital. C/O of TOURE with RT sided rib pain. ; Additional info: Fall head inj TECHNIQUE: Imaging protocol: Computed tomography of the head without contrast. Radiation optimization: All CT scans at this facility use at least one of these dose optimization techniques: automated exposure control; mA and/or kV adjustment per patient size (includes targeted exams where dose is matched to clinical indication); or iterative reconstruction. COMPARISON: CT head wo con* [id number] 10/18/2023 1:27 PM RADIATION DOSE METRICS: Total DLP (mGy-cm): 1165.02 FINDINGS: Brain: There is mild cerebral atrophy. There are mild deep white matter microangiopathic ischemic changes. No acute hemorrhage is identified. No mass or mass effect is identified. Cerebral ventricles: The ventricles are prominent secondary to atrophy. Paranasal sinuses: The paranasal sinuses are clear. Mastoid air cells: The mastoid air cells are clear. Bones: No acute osseous abnormalities are seen. Soft tissues: Mild right posterior parietal scalp soft tissue swelling with suggested skin defect CT/CT head wo con* [id number] IMPRESSION: No acute intracranial pathology.
--- NOTE | 2024-12-12 00:32 | CTR_ITS ---
PROCEDURE INFORMATION: Exam: CT Chest Without Contrast; Diagnostic Exam date and time: 12/12/2024 12:50 AM Age: 59 years old Clinical indication: Injury or trauma; Blunt trauma (contusions or hematomas); Fall off of porch with headstrike. Laceration to RT occipital. C/O of TOURE with RT sided rib pain. ; Additional info: Fall rib pain TECHNIQUE: Imaging protocol: Diagnostic computed tomography of the chest without contrast. Radiation optimization: All CT scans at this facility use at least one of these dose optimization techniques: automated exposure control; mA and/or kV adjustment per patient size (includes targeted exams where dose is matched to clinical indication); or iterative reconstruction. COMPARISON: CT lung screening [id number] 05/01/2024 9:10 AM RADIATION DOSE METRICS: Total DLP (mGy-cm): 769.98 FINDINGS: Lungs: Mild emphysematous changes are noted primarily in the right upper lobe. Mild discoid atelectatic changes are noted primarily at the left lung base. Milder findings are noted at the right base. No consolidation. No masses. Pleural spaces: Unremarkable. No pneumothorax. No pleural effusion. Heart: Moderate coronary artery calcification is present. No cardiomegaly. No pericardial effusion. Lymph nodes: Unremarkable. No enlarged lymph nodes. 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 No aortic aneurysm. Bones/joints: There are compression fractures at T4, T5, and T7. Normal alignment is maintained. No significant paraspinal soft tissue findings at these levels is appreciated the posterior elements are intact. Soft tissues: Unremarkable. Upper abdomen: The solid organs appear to be intact. A small hiatal hernia is incidentally noted. No acute traumatic injury is identified. CT/CT chest wo con [id number] IMPRESSION: 1. There are compression at T4, T5, and at T7. The posterior elements are intact and normal alignment is maintained. Clinical correlation is recommended, and if warranted, further evaluation with a an MRI examination of the thoracic spine may be considered. 2. 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 3. Moderate coronary artery calcification is noted. 4. Mild emphysema. Comments: The presence of pulmonary emphysema on CT is an independent risk factor for lung cancer. The patient should be evaluated for enrollment in a low-dose CT lung cancer screening program.
[2024-12-12 00:56] VITALS: BP 173/89; PULSE 73
--- NOTE | 2024-12-12 01:56 | ED_ITS ---
HPI - Fall General: Chief Complaint: Fall Stated Complaint: fall lac on head Time Seen by Provider: 12/12/24 00:38 History of Present Illness: Patient is a 59-year-old male who presents with a head injury after falling and hitting his head on a porch rail. Patient reports that he has been experiencing increased frequency of falls lately. He sustained a laceration to the scalp which bled significantly at the time of injury. Patient also reports some soreness across his upper body and had some neck pain earlier, though states it was not severe. Patient experienced lightheadedness when attempting to roller printer the lobby prior to examination. Related Data Home Medications ?Medication ?Instructions ?Recorded ?Confirmed pantoprazole 40 mg tablet,delayed 40 mg PO QAM 1 10/20/24 release amitriptyline 50 mg tablet 50 mg PO BEDTIME 10/18/23 0 10/20/24 propranolol 20 mg tablet 20 mg PO BID heart 10/18/23 10/20/24 varenicline tartrate 1 mg tablet See Rx Instructions . Route .COMPLEX 10/18/23 10/20/24 (Chantix Continuing Month Box) fluoxetine 60 mg tablet 60 mg PO DAILY 02/25/2404/14 Previous Rx's ?Medication ?Instructions ?Recorded Custom insoles #1 ea 09/10/23 Orthopedic Shoes #1 ea 09/10/23 compression stockings #1 ea 09/10/23 divalproex 500 mg tablet,extended See Rx Instructions .Route 10/20/24 release 24 hr .COMPLEX #270 tabs erenumab-aooe 140 mg/mL See Rx Instructions .Route 0 10/20/24 subcutaneous auto-injector .COMPLEX #1 mL (Aimovig Autoinjector) galantamine 4 mg tablet 4 mg PO BID 90 days #180 tab s 10/20/24 Allergies Allergy/AdvReac Type Severity Reaction Status Date / Time No Known Allergies Allergy Verified 12/11/24 20:47 PFSH ED PFSH: Family History Father Cancer Diabetes Mother Diabetes Denies family history of Dementia Social History Smoking and tobacco/nicotine status: never used tobacco/nicotine Alcohol intake: current Alcohol intake frequency: holidays/special occasions only Substance/Drug Use: never Physical Exam HENMT: HEAD & SCALP: contusion, hematoma (Small to same area) and laceration (4 cm laceration to occipital scalp.) FACE & SINUS: normal facial exam and face symmetric; no ecchymosis, no erythema and no edema Eye: COMMON NORMALS: Equal, round and reactive pupils present and EOMs intact bilaterally PUPIL: Yes Equal, round and reactive pupils present Neck/C-Spine: GENERAL: Yes trachea midline and No anterior neck swelling CERVICAL SPINE: No Cervical spine tenderness Chest: CHEST: Yes Symmetrical chest wall rise Resp: COMMON NORMALS: normal respiratory effort, No retractions and clear to auscultation bilaterally AUSCULTATION: clear to auscultation bilaterally : BLADDER/KIDNEY EXAM: Yes CVA tenderness Back/Pelvis: GENERAL BACK: Yes CVA tenderness CVA tenderness: right (Mild) THORACIC SPINE/UPPER BACK: Yes normal to inspection, No thoracic spinal tenderness, No paraspinal muscle tenderness and No paraspinal muscle spasm Procedures Laceration Laceration 1: Site: scalp Size (cm): 4 Description: linear Depth: simple, single layer Local Anesthetic: lidocaine 1% and with epi Amount of anesthesia used (mL): 5 Pre-repair: wound explored, irrigated extensively and deep structures intact Skin layer closed with: other (irene) Number of sutures: 5 Technique: simple, interrupted Course Vital Signs: Vital signs: Vital Signs Temperature 98.0 F 12/12/24 03:39 Pulse Rate 62 12/12/24 03:39 Respiratory Rate 16 12/12/24 03:39 Blood Pressure 117/90 12/12/24 03:39 Pulse Oximetry 95 12/12/24 03:39 MDM - Fall Medical Decision Making Laceration was repaired with irene without complication. CT of the head and cervical spine are negative. CT of the chest shows no solid organ injury or rib fracture. There are old fractures of T4, 5, and 7, that the patient is aware of. These are not painful currently. he is stable for discharge. He knows to return for any new or worsening symptoms. Lab Data Radiology Impressions Cervical Spine CT 12/12/24 00:32 IMPRESSION: No evidence of acute fracture. Chest CT 12/12/24 00:32 IMPRESSION: 1. There are compression at T4, T5, and at T7. The posterior elements are intact and normal alignment is maintained. Clinical correlation is recommended, and if warranted, further evaluation with a an MRI examination of the thoracic spine may be considered. 2. 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 3. Moderate coronary artery calcification is noted. 4. Mild emphysema. Comments: The presence of pulmonary emphysema on CT is an independent risk factor for lung cancer. The patient should be evaluated for enrollment in a low-dose CT lung cancer screening program. Head CT 12/12/24 00:32 IMPRESSION: No acute intracranial pathology. All radiology interpretation(s) finalized by discharge Discharge Plan Discharge Patient Disposition: Home Clinical Impression: Contusion of scalp, Laceration of scalp Condition: Stable Prescriptions: No Action pantoprazole 40 mg tablet,delayed release (DR/EC) 40 mg PO QAM Aimovig Autoinjector 140 mg/mL auto-injector See Rx Instructions .ROUTE .COMPLEX Qty: 1 11RF Dose Instruction: INJECT 140MG (CONTENTS OF 1 AUTOINJECTOR) UNDER THE SKIN ONCE A MONTH FOR MIGRAINE HEADACHE Rx Instructions: INJECT 140MG (CONTENTS OF 1 AUTOINJECTOR) UNDER THE SKIN ONCE A MONTH FOR MIGRAINE HEADACHE galantamine 4 mg tablet 4 mg PO BID 90 Days Qty: 180 1RF Rx Instructions: administer with AM and PM meals divalproex 500 mg tablet extended release 24 hr See Rx Instructions .ROUTE .COMPLEX Qty: 270 3RF Dose Instruction: TAKE THREE TABLETS BY MOUTH ONCE A DAY Rx Instructions: TAKE THREE TABLETS BY MOUTH ONCE A DAY (DME) Custom insoles See Rx Instructions .Route .MEDSUPPLY Qty: 1 0RF Rx Instructions: As directed (DME) Orthopedic Shoes See Rx Instructions .Route .MEDSUPPLY Qty: 1 0RF Rx Instructions: As directed (DME) compression stockings See Rx Instructions .Route .MEDSUPPLY Qty: 1 0RF Rx Instructions: right calf 37 cm right ankle 29cm right foot to knee 65cm left ankle 29cm left calf 41 cm left foot to knee 65cm fluoxetine 60 mg tablet 60 mg PO DAILY methylprednisolone acetate [Depo-Medrol] 40 mg/mL suspension 40 mg intra-articular ONCE Qty: 1 0RF amitriptyline 50 mg Tablet 50 mg PO BEDTIME propranolol 20 mg tablet 20 mg PO BID Chantix Continuing Month Box 1 mg tablet See Rx Instructions .ROUTE .COMPLEX Rx Instructions: Take 1/2 tablet at breakfast for 7 days then 1 tablet in AM for 7 days then 1 tablet in AM and afternoon. Never after 4 pm. Always with food. Discharge Orders: Discharge ED (Routine); Ordered 12/12/24 Ordered By: Erwin Bustos Referrals: Steve Keating MD [Primary Care Provider, [facility]] - 4-7 days Patient Instructions: Scalp Laceration, Scalp Contusion in Adults (ED), Opioid Safety, Pain Management, Patient Portal & Sqaib Instructions Activity Restrictions/Additional Instructions: Irene out in 5 to 7 days. Call your doctor Saturday for an appointment for this. Return for any problems such as worsening headache, vomiting, mental status changes, etc. Print Language: Nicaraguan Coding Level of Care Code ED Regional Vice President Surgical Sales for Latanya Gayle
[2024-12-12 02:12] VITALS: BP 122/94; PULSE 81; RESP 15; O2SAT 91
[2024-12-12 03:39] VITALS: BP 117/90; PULSE 62; RESP 16; TEMP 36.7; O2SAT 95
== END 2024-12-12 03:41 | disposition home or self-care (01) ==
PROVIDERS: Emergency Provider Emergency Medicine; PCP Family Medicine Geriatric Medicine
DX: S01.01XA Laceration without foreign body of scalp, initial encounter (principal); W19.XXXA Unspecified fall, initial encounter
CPT/HCPCS: 12002; 70450; 71250; 72125; 99284